=== PATIENT | male | born 1955 | race Caucasian/White ===

== ENCOUNTER 2019-12-17 06:12 | Outpatient (REF) | payer BC, SELFPAY ==
[2019-12-18 12:11] LABS: Free Prostate Spec Ag 1.5 ng/mL; Percent Free Prostate Spec Ag 20 % (calc) (>25); Prostate Specific Ag Total 7.6 ng/mL (< OR = 4.0)
== END 2019-12-17 06:13 | disposition home or self-care (01) ==
LOC: HO.LAB 06:12
PROVIDERS: PCP Nurse Practitioner Family; Visit Provider Urology
DX: R97.20 Elevated prostate specific antigen [PSA] (principal)
CPT/HCPCS: 84153

== ENCOUNTER → 2019-12-24 14:00 | Outpatient (BNVA) | payer BC, SELFPAY | PROVIDERS: PCP Nurse Practitioner Family; Visit Provider Urology | DX: R97.20 Elevated prostate specific antigen [PSA] (principal); N40.1 Benign prostatic hyperplasia with lower urinary tract symptoms; R35.1 Nocturia; R31.29 Other microscopic hematuria | CPT/HCPCS: 51798; 81002 ==

== ENCOUNTER 2019-12-25 | Outpatient (REF) | payer BC, SELFPAY ==
[2020-01-02 14:10] LABS: Urine Cytology See Pathology rpt
== END 2019-12-25 00:10 ==
LOC: HO.LNP
PROVIDERS: Visit Provider Urology
DX: R31.29 Other microscopic hematuria (principal)
CPT/HCPCS: 88112

== ENCOUNTER 2020-01-26 13:42 | Outpatient (REF) | payer BC, SELFPAY ==
--- NOTE | 2020-01-26 14:19 | US_ITS ---
EXAMINATION: US RETROPERITONEAL LIMITED (RENAL ONLY) CLINICAL INFORMATION: Calculus of kidney. COMPARISON: None TECHNIQUE: Real-time imaging of the kidneys. FINDINGS: RIGHT KIDNEY: 9.7 x 4.6 x 4.5 cm (SAG x AP x TRV). The kidney is normal in size, contour, and echogenicity. Renal cortical thickness is normal. No calculi or focal parenchymal lesions. No hydronephrosis. LEFT KIDNEY: 10.3 x 5.7 x 4.9 cm (SAG x AP x TRV). The kidney is normal in size, contour, and echogenicity. Renal cortical thickness is normal. No calculi or focal parenchymal lesions. No hydronephrosis. US/US renal BI IMPRESSION: Unremarkable renal ultrasound.
== END 2020-01-26 13:43 | disposition home or self-care (01) ==
LOC: HO.HMGCX 13:42
PROVIDERS: PCP Nurse Practitioner Family; Visit Provider Urology
DX: N20.0 Calculus of kidney (principal); R31.29 Other microscopic hematuria
CPT/HCPCS: 76775

== ENCOUNTER → 2020-01-28 14:38 | Outpatient (BNVA) | payer BC, SELFPAY | PROVIDERS: PCP Nurse Practitioner Family; Visit Provider Urology | DX: R35.1 Nocturia (principal); R31.29 Other microscopic hematuria | CPT/HCPCS: 52000; 81002 ==

== ENCOUNTER 2020-02-11 13:59 | Outpatient (REF) | payer BC, SELFPAY | END 2020-02-11 14:00 | disposition home or self-care (01) | LOC: HO.HMGCLDS 13:59 | PROVIDERS: PCP Nurse Practitioner Family; Visit Provider Internal Medicine | DX: Z20.828 Contact with and (suspected) exposure to other viral communicable diseases (principal) | CPT/HCPCS: C9803; U0003 ==

== ENCOUNTER 2020-03-14 06:00 | Day surgery (SDC) | payer BC, SELFPAY ==
[2020-03-08 10:13] VITALS: BMI 28.1
--- NOTE | 2020-03-11 12:08 | HO.ANESPROP2 ---
Documented by User: Alisia Menon 03/11/20 12:09 HPI - Anesthesia Eval Consult details Narrative: 64yo M for Laser Ablation Prostate [facility] Past Medical History Medical History Elevated cholesterol Elevated PSA [place] disease Hemorrhoids, thrombosed HTN (hypertension) Hypothyroid Family History Family History Father Colon cancer Mother COPD (chronic obstructive pulmonary disease) Brother No problems noted. Maternal Grandfather No problems noted. Maternal Grandmother No problems noted. Maternal Aunt No problems noted. Maternal Uncle No problems noted. Paternal Aunt No problems noted. Paternal Grandfather No problems noted. Paternal Grandmother No problems noted. Paternal Uncle No problems noted. Surgical History Surgical History History of colonoscopy History of melanoma History of tonsillectomy and adenoidectomy Hx of removal of cyst Social History Social History Smoking Status: Never smoker Use of substances other than those prescribed or required for medical reasons: No Advance Directives: No Advance Directives Information Provided: Yes Meds Allergies Allergy/AdvReac Type Severity Reaction Status Date / Time lorazepam [LORAZEPAM] Allergy Mild TURNS PINK Verified 03/14/20 06:06 Exam Exam Date and Time: March 11, 2020 1208 Height,Weight and Vital Signs: Height 5 ft 7 in Weight 81.647 kg Pertinent Lab Results Pertinent Lab Results: Laboratory Tests 04/16/18 11/06/19 06:40 06:07 WBC 4.7 L Hgb 15.2 Hct 46.2 Plt Count 230 Sodium 141 Potassium 4.1 Chloride 108 BUN 17 H Creatinine 1.32 Assessment and Plan Assessment Anesthesia Assessment: Chart Reviewed Documented by User: Magdalena Aranda 03/14/20 07:19 [facility] Past Medical History Medical History Elevated cholesterol Elevated PSA [place] disease Hemorrhoids, thrombosed HTN (hypertension) Hypothyroid Family History Family History Father Colon cancer Mother COPD (chronic obstructive pulmonary disease) Brother No problems noted. Maternal Grandfather No problems noted. Maternal Grandmother No problems noted. Maternal Aunt No problems noted. Maternal Uncle No problems noted. Paternal Aunt No problems noted. Paternal Grandfather No problems noted. Paternal Grandmother No problems noted. Paternal Uncle No problems noted. Surgical History Surgical History History of colonoscopy History of melanoma History of tonsillectomy and adenoidectomy Hx of removal of cyst Social History Social History Smoking Status: Never smoker Use of substances other than those prescribed or required for medical reasons: No Advance Directives: No Advance Directives Information Provided: Yes Meds Allergies Allergy/AdvReac Type Severity Reaction Status Date / Time lorazepam [LORAZEPAM] Allergy Mild TURNS PINK Verified 03/14/20 06:06 Exam Airway Mallampati Class: II TM Dist: >3cm Neck ROM: Full Assessment and Plan Assessment Anesthesia Assessment: Anesthesia Plan Discussed and Chart Reviewed Final Anesthetic Review NPO: Yes ASA Class: II Final Preanesthetic Review: No Changes in Pt Med Stat, Meds/Allgs Chart Reviewed, Consent Obtained/Reviewed and Anes Risks/Benef Reviewed Patient Risk: Low Procedure Risk: Low Assessment/Block/Sedation in SS: Assess/Block/Sedation-SS Anesthetic Plan Anesthetic Plan: GA Disposition: Standard PACU
[2020-03-14] VITALS (7 sets, daily range): BP systolic 129–155; BP diastolic 61–80; PULSE 50–66; RESP 16; TEMP 35.9–36.4; O2SAT 88–98; BMI 28.1
[2020-03-14] MEDS: levoFLOXacin 500 MG TABLET PO (06:19)
[2020-03-14] MEDS: Lactated Ringers 1,000 ML 100 ML IVCONT (06:32)
--- NOTE | 2020-03-14 07:33 | P.HPSUR_ITS ---
Pre-Procedural Eval Section B Chief Complaint: elevated prostate,benign prostate hyperplasia Details of Present Illness: BPH Relevant Family History (Specify if Yes): No Relevant Social History: None Present Medications: see Short Stay Collaborative assessment Medical History: No relevant PMH Allergies: Allergies Allergy/AdvReac Type Severity Reaction Status Date / Time lorazepam [LORAZEPAM] Allergy Mild TURNS PINK Verified 03/14/20 06:06 Review of Systems Sugical H&P ROS: Negative: Constitution, Cardiovascular, Respiratory, Neurological, Psychiatric, Hem-Onc, Allergic/Immunologic, Gastrointestinal, Genitourinary, Musculoskeletal, Integumentary, Endocrine and Eyes/Ears/Nose/Th roat Exam Surgical H&P Exam: Normal: HEENT, Normal: Heart, Normal: Lungs, Normal: Extremities, Normal: Abdomen, Normal: Skin and Normal: Neurological Plan Diagnosis/Plan: Unchanged I have reviewed the history and physical and performed a pertinent physical examination on my patient. No changes have occurred unless specified. Laser enucleation of prostate
--- NOTE | 2020-03-14 08:59 | PM.OP ---
Brief Operative Note Date of Service: 03/14/20 Pre-op diagnosis: BPH Post-op diagnosis: same Procedure: Laser Enculeation of the Prostate Surgeon: Keven Bowen MD Anesthesia: GLMA Estimated blood loss (mL): 0 Pathology: other (prostate) Condition: stable Disposition: same day
--- NOTE | 2020-03-14 09:01 | W.PM.OPN ---
Operative Note Operative Note Date of Service: 03/14/20 Narrative: PreOperative Diagnosis: BPH Post Operative Diagnosis: BPH Procedure: Laser enucleation of prostate Surgeon: Dr Keven Bowen Anesthesia: General Indications for procedure: Weakness of stream. 64-year-old male. On finasteride. Progressive symptoms. Is aware of risks and benefits. Procedure: After informed consent was verified the patient was brought to the operating room and placed in a supine position. anesthesia was administered per protocol. Patient was prepped and draped in a sterile fashion. This was after he was put in simple lithotomy position. Antibiotics have been administered. A 22 Indonesian cystoscope was inserted. No abnormality noted in the anterior posterior urethra. Both ureteric orifices normal position. Trilobar hypertrophy with large median lobe noted. The laser cystoscope was then placed. Using a GreenLight laser fiber the median lobe was enucleated and ablated. Grooves had been made at the 5 and 7 o'clock position. They had been taken from the bladder neck down to the veru. The patient's left lateral lobe was then enucleated and ablated after making a groove at the 2 o'clock position. A similar procedure was repeated on the right-hand side after making a groove at the 11 o'clock position. The intervening 12:00 o'clock tissue was then also ablated. Total of 200,000 kilojoules of energy was used. Lasing time 28 minutes At the completion of the procedure a [address] catheter with 30 cc balloon was placed and then placed on gentle traction. A belladonna and opiate suppository was used for postprocedure pain management. He tolerated procedure well was extubated in operating room transferred in a stable condition to recovery area. Pathology: prostate Drains: 22 Fr Catheter
[2020-03-14] MEDS: oxyCODONE HCl Immed Release 5 MG TABLET PO (09:21)
[2020-03-14] MEDS: Acetaminophen 325 MG TABLET 650 MG PO (09:21)
== END 2020-03-14 10:16 ==
LOC: HO.SSS 06:01
PROVIDERS: PCP Nurse Practitioner Family; Visit Provider Urology
PROC: 0V507ZZ Destruction of Prostate, Via Natural or Artificial Opening (ICD-10-PCS; CPT 52649; principal; 2020-03-14 07:30)
DX: N40.1 Benign prostatic hyperplasia with lower urinary tract symptoms (principal); R39.12 Poor urinary stream; R97.20 Elevated prostate specific antigen [PSA]; I10 Essential (primary) hypertension; E80.4 Gilbert syndrome; Z79.899 Other long term (current) drug therapy; Z85.820 Personal history of malignant melanoma of skin
CPT/HCPCS: 52649; 88305; J2405; J3010

== ENCOUNTER → 2020-03-17 08:50 | Outpatient (BNVA) | payer BC, SELFPAY | PROVIDERS: PCP Nurse Practitioner Family; Visit Provider Urology ==

== ENCOUNTER 2020-04-20 09:47 | Outpatient (REF) | payer BC, SELFPAY ==
[2020-04-20 12:27] LABS: Prostate Specific Antigen 3.98 ng/mL (<0.05-4.0)
== END 2020-04-20 09:48 | disposition home or self-care (01) ==
LOC: HO.WFDLDS 09:47
PROVIDERS: Visit Provider Urology
DX: Z12.5 Encounter for screening for malignant neoplasm of prostate (principal); N40.1 Benign prostatic hyperplasia with lower urinary tract symptoms; N13.8 Other obstructive and reflux uropathy
CPT/HCPCS: 36415; 84153

== ENCOUNTER → 2020-04-28 16:14 | Outpatient (BNVA) | payer BC, SELFPAY | PROVIDERS: PCP Nurse Practitioner Family; Visit Provider Urology ==

== ENCOUNTER 2020-05-11 06:01 | Outpatient (REF) | payer BC, SELFPAY ==
[2020-05-11 07:34] LABS: Alanine Aminotransferase 23 U/L (0-40); Albumin Level 4.1 g/dL (3.5-5.0); Alkaline Phosphatase 80 U/L (39-117); Anion Gap 11 (12-20); Aspartate Amino Transferase 20 U/L (5-37); Bilirubin Total 2.3 mg/dL (0.0-1.0); Blood Urea Nitrogen 17 mg/dL (9-16); Carbon Dioxide 27 mmol/L (22-29); Chloride 107 mmol/L (96-108); Cholesterol 158 mg/dL; Estimated Glomerular Filt Rate 56; Glucose Fasting 95 mg/dL (60-99); HDL Cholesterol 43 mg/dL; LDL Cholesterol Calculated 94 mg/dl; Potassium 4.2 mmol/L (3.3-5.1); Sodium 141 mmol/L (135-145); Total Protein 6.4 g/dL (6.5-8.0); Triglycerides 106 mg/dL
[2020-05-11 07:56] LABS: TSH reflex Free T4 0.93 uIU/mL (0.32-4.0)
[2020-05-11 08:16] LABS: Prostate Specific Antigen Scr 3.74 ng/mL (<0.05-4.0)
== END 2020-05-11 06:02 | disposition home or self-care (01) ==
LOC: HO.LAB 06:01
PROVIDERS: PCP Nurse Practitioner Family; Visit Provider Nurse Practitioner Family
DX: Z12.5 Encounter for screening for malignant neoplasm of prostate (principal); Z13.220 Encounter for screening for lipoid disorders; Z13.1 Encounter for screening for diabetes mellitus; R97.20 Elevated prostate specific antigen [PSA]; E03.9 Hypothyroidism, unspecified
CPT/HCPCS: 36415; 80053; 80061; 84153; 84443

== ENCOUNTER 2020-11-09 11:00 | Outpatient (REF) | payer BC, SELFPAY ==
[2020-11-09 14:45] LABS: PSA,Total (Free>4and<10) 5.39 ng/mL (0.00-4.00)
[2020-11-10 12:31] LABS: Free Prostate Spec Ag 1.4 ng/mL; Percent Free Prostate Spec Ag 30 % (calc) (>25); Prostate Specific Ag Total 4.6 ng/mL (< OR = 4.0)
== END 2020-11-09 11:01 | disposition home or self-care (01) ==
LOC: HO.HMGCLDS 11:00
PROVIDERS: PCP Nurse Practitioner Family; Visit Provider Urology
DX: R97.20 Elevated prostate specific antigen [PSA] (principal); N40.1 Benign prostatic hyperplasia with lower urinary tract symptoms; N13.8 Other obstructive and reflux uropathy; Z12.5 Encounter for screening for malignant neoplasm of prostate
CPT/HCPCS: 36415; 84153; 84154

== ENCOUNTER → 2020-11-16 12:07 | Outpatient (BNVA) | payer BC, SELFPAY | PROVIDERS: PCP Nurse Practitioner Family; Visit Provider Urology ==

== ENCOUNTER 2021-05-02 11:23 | Outpatient (REF) | payer BC, SELFPAY ==
[2021-05-02 13:56] LABS: PSA,Total (Free>4and<10) 2.76 ng/mL (0.00-4.00)
== END 2021-05-02 11:24 | disposition home or self-care (01) ==
LOC: HO.WFDLDS 11:23
PROVIDERS: Visit Provider Urology
DX: Z12.5 Encounter for screening for malignant neoplasm of prostate (principal); N13.8 Other obstructive and reflux uropathy; N40.1 Benign prostatic hyperplasia with lower urinary tract symptoms; R97.20 Elevated prostate specific antigen [PSA]
CPT/HCPCS: 36415; 84153

== ENCOUNTER 2021-05-10 09:07 | Outpatient (REF) | payer BC, SELFPAY ==
[2021-05-10 11:15] LABS: Appearance Urine CLEAR; Color Urine YELLOW; Glucose Urine UA NEG (NEG); Leukocyte Esterase Urine NEG (NEG); Nitrite Urine NEG (NEG); PH 5.5 (5.0-8.0); Specific Gravity - Urine 1.025 (1.005-1.025); Urine Blood NEG (NEG); Urine Ketones NEG (NEG); Urine Protein NEG (NEG-TRACE)
[2021-05-10 12:17] LABS: Alanine Aminotransferase 15 U/L (0-40); Alkaline Phosphatase 77 U/L (39-117); Anion Gap 12 (12-20); Aspartate Amino Transferase 13 U/L (5-37); Bilirubin Total 1.8 mg/dL (0.0-1.0); Blood Urea Nitrogen 22 mg/dL (9-16); Calcium 9.6 mg/dL (8.4-10.2); Carbon Dioxide 25 mmol/L (22-29); Chloride 107 mmol/L (96-108); Cholesterol 149 mg/dL; Estimated Glomerular Filt Rate 51; Glucose Fasting 106 mg/dL (60-99); HDL Cholesterol 41 mg/dL; LDL Cholesterol Calculated 90 mg/dl; Potassium 4.4 mmol/L (3.3-5.1); Sodium 140 mmol/L (135-145); Total Protein 6.5 g/dL (6.5-8.0); Triglycerides 91 mg/dL
[2021-05-10 12:22] LABS: TSH reflex Free T4 0.79 uIU/mL (0.32-4.0)
== END 2021-05-10 09:08 | disposition home or self-care (01) ==
LOC: HO.HMGCLDS 09:07
PROVIDERS: Visit Provider Nurse Practitioner Family
DX: I10 Essential (primary) hypertension (principal)
CPT/HCPCS: 36415; 80053; 80061; 81003; 84443

== ENCOUNTER → 2021-05-18 09:10 | Outpatient (BNVA) | payer BC, SELFPAY | PROVIDERS: PCP Nurse Practitioner Family; Visit Provider Urology | DX: N40.1 Benign prostatic hyperplasia with lower urinary tract symptoms (principal); R97.20 Elevated prostate specific antigen [PSA]; N52.9 Male erectile dysfunction, unspecified ==

== ENCOUNTER 2021-11-14 06:06 | Outpatient (REF) | payer BC, SELFPAY ==
[2021-11-14 08:17] LABS: Prostate Specific Antigen 1.87 ng/mL (<0.05-4.0)
== END 2021-11-14 06:07 | disposition home or self-care (01) ==
LOC: HO.LAB 06:06
PROVIDERS: PCP Nurse Practitioner Family; Visit Provider Urology
DX: Z12.5 Encounter for screening for malignant neoplasm of prostate (principal); R97.20 Elevated prostate specific antigen [PSA]
CPT/HCPCS: 36415; 84153

== ENCOUNTER → 2021-11-21 11:16 | Outpatient (BNVA) | payer BC, SELFPAY | PROVIDERS: PCP Nurse Practitioner Family; Visit Provider Urology | DX: N52.9 Male erectile dysfunction, unspecified (principal); R97.20 Elevated prostate specific antigen [PSA]; N40.1 Benign prostatic hyperplasia with lower urinary tract symptoms; R35.1 Nocturia | CPT/HCPCS: 51798 ==

== ENCOUNTER 2022-02-08 06:10 | Outpatient (REF) | payer BC, SELFPAY ==
[2022-02-08 06:31] LABS: MANUAL DIFF FLAG NO
[2022-02-08 07:03] LABS: Basophils Absolute Auto 0.1 X10*3/uL (0.0-0.2); Eosinophils Absolute Auto 0.4 X10*3/uL (0.0-0.4); Eosinophils Percent Auto 8.6 % (0-4); Hematocrit 46.8 % (42.0-52.0); Hemoglobin 15.9 g/dl (14.0-18.0); Imm Gran Abs Auto 0.01 X10*3/uL (0.00-0.03); Imm Gran Pct Auto 0.2 % (0.0-0.4); Lymphocytes Absolute Auto 1.9 X10*3/uL (1.2-4.9); Lymphocytes Percent Auto 47.7 % (20-40); Mean Corpuscular Hemoglobin 29.6 pg (27.0-33.0); Mean Corpuscular Volume 87.2 fL (80.0-98.0); Mean Platelet Volume 8.9 fL (9.4-12.4); Monocytes Absolute Auto 0.4 X10*3/uL (0.1-1.2); Monocytes Percent Auto 10.3 % (2-11); Neutrophils Absolute Auto 1.3 x10*3/uL (2.0-8.3); Neutrophils Percent Auto 31.2 % (45-73); Platelet Count 227 X10*3/uL (160-400); Red Blood Count 5.37 X10*6/uL (4.60-5.80); Red Cell Distribution Width 12.5 % (11.0-16.0); White Blood Count 4.1 X10*3/uL (4.8-10.8)
[2022-02-08 07:46] LABS: Appearance Urine Clear; Color Urine Yellow; Glucose Urine UA Negative (Negative); Leukocyte Esterase Urine Negative (Negative); Nitrite Urine Negative (Negative); PH 5.5 (5.0-9.0); Urine Blood Negative (Negative); Urine Ketones Negative (Negative); Urine Protein Negative (Neg-Trace)
[2022-02-08 07:49] LABS: Alanine Aminotransferase 17 U/L (0-40); Alkaline Phosphatase 87 U/L (39-117); Anion Gap 11 (12-20); Aspartate Amino Transferase 14 U/L (5-37); Bilirubin Total 2.2 mg/dL (0.0-1.0); Blood Urea Nitrogen 19 mg/dL (9-16); Calcium 9.3 mg/dL (8.4-10.2); Carbon Dioxide 26 mmol/L (22-29); Chloride 108 mmol/L (96-108); Cholesterol 138 mg/dL; Estimated Glomerular Filt Rate 54; Glucose Fasting 100 mg/dL (60-99); HDL Cholesterol 37 mg/dL; LDL Cholesterol Calculated 86 mg/dl; Potassium 4.6 mmol/L (3.3-5.1); Sodium 140 mmol/L (135-145); Total Protein 6.3 g/dL (6.5-8.0); Triglycerides 79 mg/dL
[2022-02-08 08:12] LABS: TSH reflex Free T4 0.35 uIU/mL (0.32-4.0)
== END 2022-02-08 06:11 | disposition home or self-care (01) ==
LOC: HO.LAB 06:10
PROVIDERS: Urology; PCP Nurse Practitioner Family; Visit Provider Nurse Practitioner Family
DX: I10 Essential (primary) hypertension (principal); N40.1 Benign prostatic hyperplasia with lower urinary tract symptoms; D72.819 Decreased white blood cell count, unspecified
CPT/HCPCS: 36415; 80053; 80061; 81003; 84443; 85025

== ENCOUNTER 2022-03-12 07:48 | Outpatient (REF) | payer BC, SELFPAY ==
[2022-03-12 11:05] LABS: MANUAL DIFF FLAG NO
[2022-03-12 11:11] LABS: Basophils Absolute Auto 0.1 X10*3/uL (0.0-0.2); Basophils Percent Auto 1.8 % (0-2); Eosinophils Absolute Auto 0.4 X10*3/uL (0.0-0.4); Eosinophils Percent Auto 9.4 % (0-4); Hematocrit 49.4 % (42.0-52.0); Hemoglobin 16.6 g/dl (14.0-18.0); Imm Gran Abs Auto 0.02 X10*3/uL (0.00-0.03); Imm Gran Pct Auto 0.5 % (0.0-0.4); Lymphocytes Absolute Auto 2.2 X10*3/uL (1.2-4.9); Lymphocytes Percent Auto 49.1 % (20-40); Mean Corpuscular HGB Conc 33.6 g/dl (31.0-36.0); Mean Corpuscular Volume 89.2 fL (80.0-98.0); Mean Platelet Volume 9.5 fL (9.4-12.4); Monocytes Absolute Auto 0.4 X10*3/uL (0.1-1.2); Monocytes Percent Auto 9.8 % (2-11); Neutrophils Absolute Auto 1.3 x10*3/uL (2.0-8.3); Neutrophils Percent Auto 29.4 % (45-73); Platelet Count 254 X10*3/uL (160-400); Red Blood Count 5.54 X10*6/uL (4.60-5.80); Red Cell Distribution Width 12.6 % (11.0-16.0); White Blood Count 4.4 X10*3/uL (4.8-10.8)
[2022-03-12 11:23] LABS: INTERNATIONAL NORM RATIO 1.1 (0.9-1.1); Prothrombin Time 13.2 SEC (10.0-13.1)
[2022-03-12 11:26] LABS: Alanine Aminotransferase 16 U/L (0-40); Albumin Level 4.1 g/dL (3.5-5.0); Alkaline Phosphatase 93 U/L (39-117); Anion Gap 8 (12-20); Aspartate Amino Transferase 16 U/L (5-37); Bilirubin Total 1.9 mg/dL (0.0-1.0); Blood Urea Nitrogen 18 mg/dL (9-16); Calcium 9.3 mg/dL (8.4-10.2); Carbon Dioxide 29 mmol/L (22-29); Chloride 106 mmol/L (96-108); Estimated Glomerular Filt Rate 50; Glucose Random 97 mg/dL (60-115); Partial Thromboplastin Time 33.3 SEC (26.0-36.4); Sodium 139 mmol/L (135-145); Total Protein 6.5 g/dL (6.5-8.0)
== END 2022-03-12 07:49 | disposition home or self-care (01) ==
LOC: HO.HMGCLDS 07:48
PROVIDERS: PCP Nurse Practitioner Family; Visit Provider Nurse Practitioner Family
DX: Z01.818 Encounter for other preprocedural examination (principal)
CPT/HCPCS: 36415; 80053; 85025; 85610; 85730

== ENCOUNTER 2022-03-28 06:02 | Outpatient (REF) | payer BC, SELFPAY ==
[2022-03-28 06:13] LABS: MANUAL DIFF FLAG NO
[2022-03-28 07:27] LABS: Basophils Absolute Auto 0.1 X10*3/uL (0.0-0.2); Basophils Percent Auto 0.9 % (0-2); Eosinophils Absolute Auto 0.4 X10*3/uL (0.0-0.4); Eosinophils Percent Auto 6.4 % (0-4); Hematocrit 49.5 % (42.0-52.0); Hemoglobin 16.6 g/dl (14.0-18.0); Imm Gran Abs Auto 0.09 X10*3/uL (0.00-0.03); Imm Gran Pct Auto 1.3 % (0.0-0.4); Lymphocytes Absolute Auto 2.9 X10*3/uL (1.2-4.9); Lymphocytes Percent Auto 41.9 % (20-40); Mean Corpuscular HGB Conc 33.5 g/dl (31.0-36.0); Mean Corpuscular Hemoglobin 29.6 pg (27.0-33.0); Mean Corpuscular Volume 88.4 fL (80.0-98.0); Mean Platelet Volume 9.2 fL (9.4-12.4); Monocytes Absolute Auto 0.7 X10*3/uL (0.1-1.2); Monocytes Percent Auto 9.7 % (2-11); Neutrophils Absolute Auto 2.8 x10*3/uL (2.0-8.3); Neutrophils Percent Auto 39.8 % (45-73); Platelet Count 272 X10*3/uL (160-400); Red Cell Distribution Width 12.9 % (11.0-16.0); White Blood Count 6.9 X10*3/uL (4.8-10.8)
[2022-03-28 07:52] LABS: Alanine Aminotransferase 13 U/L (0-40); Albumin Level 3.8 g/dL (3.5-5.0); Alkaline Phosphatase 82 U/L (39-117); Anion Gap 16 (12-20); Aspartate Amino Transferase 11 U/L (5-37); Bilirubin Total 1.6 mg/dL (0.0-1.0); Blood Urea Nitrogen 25 mg/dL (9-16); Calcium 9.1 mg/dL (8.4-10.2); Carbon Dioxide 22 mmol/L (22-29); Chloride 106 mmol/L (96-108); Estimated Glomerular Filt Rate 43; Glucose Random 95 mg/dL (60-115); Potassium 4.3 mmol/L (3.3-5.1); Sodium 140 mmol/L (135-145); Total Protein 6.2 g/dL (6.5-8.0)
[2022-03-28 08:12] LABS: PSA,Total (Free>4and<10) 2.04 ng/mL (0.00-4.00)
== END 2022-03-28 06:03 | disposition home or self-care (01) ==
LOC: HO.LAB 06:02
PROVIDERS: Urology; PCP Nurse Practitioner Family; Visit Provider Nurse Practitioner Family
DX: N40.1 Benign prostatic hyperplasia with lower urinary tract symptoms (principal); R79.89 Other specified abnormal findings of blood chemistry; Z12.5 Encounter for screening for malignant neoplasm of prostate
CPT/HCPCS: 36415; 80053; 84153; 85025

== ENCOUNTER 2022-06-21 08:15 | Outpatient (REF) | payer MEDICARE, SELFPAY ==
[2022-06-21 11:24] LABS: MANUAL DIFF FLAG NO
[2022-06-21 11:45] LABS: Basophils Absolute Auto 0.1 X10*3/uL (0.0-0.2); Basophils Percent Auto 1.9 % (0-2); Eosinophils Absolute Auto 0.2 X10*3/uL (0.0-0.4); Eosinophils Percent Auto 4.5 % (0-4); Hematocrit 50.7 % (42.0-52.0); Hemoglobin 16.5 g/dl (14.0-18.0); Imm Gran Abs Auto 0.02 X10*3/uL (0.00-0.03); Imm Gran Pct Auto 0.4 % (0.0-0.4); Lymphocytes Absolute Auto 1.6 X10*3/uL (1.2-4.9); Lymphocytes Percent Auto 35.3 % (20-40); Mean Corpuscular HGB Conc 32.5 g/dl (31.0-36.0); Mean Corpuscular Hemoglobin 29.3 pg (27.0-33.0); Mean Corpuscular Volume 90.1 fL (80.0-98.0); Mean Platelet Volume 9.4 fL (9.4-12.4); Monocytes Absolute Auto 0.4 X10*3/uL (0.1-1.2); Monocytes Percent Auto 9.1 % (2-11); Neutrophils Absolute Auto 2.3 x10*3/uL (2.0-8.3); Neutrophils Percent Auto 48.8 % (45-73); Platelet Count 258 X10*3/uL (160-400); Red Blood Count 5.63 X10*6/uL (4.60-5.80); Red Cell Distribution Width 12.7 % (11.0-16.0); White Blood Count 4.6 X10*3/uL (4.8-10.8)
[2022-06-21 11:54] LABS: Appearance Urine Cloudy; Color Urine Yellow; Glucose Urine UA Negative (Negative); Leukocyte Esterase Urine Negative (Negative); Nitrite Urine Negative (Negative); PH 5.5 (5.0-9.0); Urine Blood Negative (Negative); Urine Ketones Negative (Negative); Urine Protein Negative (Neg-Trace)
[2022-06-21 12:37] LABS: Alanine Aminotransferase 17 U/L (0-40); Albumin Level 4.4 g/dL (3.5-5.0); Alkaline Phosphatase 94 U/L (39-117); Anion Gap 13 (12-20); Aspartate Amino Transferase 13 U/L (5-37); Bilirubin Total 2.5 mg/dL (0.0-1.0); Blood Urea Nitrogen 18 mg/dL (9-16); Calcium 9.7 mg/dL (8.4-10.2); Carbon Dioxide 26 mmol/L (22-29); Chloride 108 mmol/L (96-108); Cholesterol 173 mg/dL; Estimated Glomerular Filt Rate 51; Glucose Fasting 114 mg/dL (60-99); HDL Cholesterol 43 mg/dL; LDL Cholesterol Calculated 108 mg/dl; Potassium 4.5 mmol/L (3.3-5.1); Sodium 142 mmol/L (135-145); TSH reflex Free T4 0.65 uIU/mL (0.32-4.0); Total Protein 6.7 g/dL (6.5-8.0); Triglycerides 112 mg/dL
== END 2022-06-21 08:16 | disposition home or self-care (01) ==
LOC: HO.WFDLDS 08:15
PROVIDERS: Visit Provider Nurse Practitioner Family
DX: R10.9 Unspecified abdominal pain (principal); I10 Essential (primary) hypertension; E03.9 Hypothyroidism, unspecified
CPT/HCPCS: 36415; 80053; 80061; 81003; 84443; 85025

== ENCOUNTER 2022-06-21 15:09 | Outpatient (REF) | payer MEDICARE, SELFPAY ==
--- NOTE | ~2022-06-21 | US_ITS ---
EXAMINATION: US RETROPERITONEAL COMPLETE (RENAL) CLINICAL INFORMATION: Right flank pain. COMPARISON: Renal ultrasound from 01/26/2020 TECHNIQUE: Real-time imaging of the kidneys and bladder. The medical office technologist reports that the examination was extremely limited by body habitus. FINDINGS: It is difficult to obtain accurate size measurements of kidneys. RIGHT KIDNEY: The right kidney measures approximately 9.2 x 4.9 x 4.6 cm cm (SAG x AP x TRV). The kidney is normal in size, contour, and echogenicity. Renal cortical thickness is normal. No calculi or focal parenchymal lesions. No hydronephrosis. LEFT KIDNEY: The left kidney measures approximately 9.2 x 5.3 x 4.4 cm (SAG x AP x TRV). The kidney is normal in size, contour, and echogenicity. Renal cortical thickness is normal. No calculi or focal parenchymal lesions. No hydronephrosis. BLADDER: Urinary bladder is distended to an estimated volume of 167 mL and bladder is empty after voiding. No evidence of bladder wall thickening, stones or mass. Both ureteral jets are visualized. OTHER: No pelvic free fluid. Prostate gland measures approximately 4.2 cm transverse and 3.3 cm AP. US/US retroperitoneal comp IMPRESSION: * The ultrasound evaluation the kidneys is limited by body habitus. * The kidneys are grossly normal. No evidence of renal stone or hydronephrosis. * Urinary bladder is normal.
== END 2022-06-21 15:10 | disposition home or self-care (01) ==
LOC: HO.US 15:09
PROVIDERS: PCP Nurse Practitioner Family; Visit Provider Nurse Practitioner Family
DX: R10.9 Unspecified abdominal pain (principal)
CPT/HCPCS: 76770

== ENCOUNTER 2022-10-08 08:44 | Outpatient (AMB) | payer MEDICARE, SELFPAY ==
[2022-10-08 09:06] VITALS: BP 142/90; PULSE 73; O2SAT 98; BMI 27.9
--- NOTE | 2022-10-08 09:06 | MHC.PC.OV ---
Vital Signs 10/08/22 09:06 Height 5 ft 7 in Weight 178 lb BMI 27.9 BP 142/90 H Blood Pressure Location Rt brachial Position Sitting Pulse 73 Pulse Source Pulse Oximeter Pulse Oximetry (%) 98 Oxygen Delivery Method Room Air Intake Visit Reasons: Annual PE Allergies lorazepam [LORAZEPAM] Allergy (Mild, Verified 10/08/22 09:11) TURNS PINK Medication List - Last Reconciled 10/08/22 by TAMIA Martínez atorvastatin 10 mg PO QPM cholecalciferol (vitamin D3) (Vitamin D3) 50 mcg PO DAILY finasteride 5 mg PO DAILY 90 days levothyroxine 100 mcg PO QAM losartan 25 mg PO DAILY 30 days metoprolol succinate ER 25 mg PO DAILY Saccharomyces boulardii (Daily Probiotic (S. boulardii)) 250 mg PO DAILY Tobacco use date assessed: 10/08/22 Fall risk assessment: No Falls in past year Last assessed Fall Risk: 10/08/22 Dental Screening Dental Screen Date: 10/08/22 Did you have a dental visit in the last 12 months?: Yes Did you have a dental problem in the last 6 months where you did not have access to dental care?: No Was dental information given to patient?: Patient has dentist HPI Annual PE HPI Details Pt is here for a PE. Will order labs. Colon screen is up to date. PSA is up to date, pt sees urology. HTN: BP at home in the 130s/80s. Denies chest pain, shortness of breath, headache, dizziness, and blurred vision. EKG in office today showed LBBB. Pt reports having this for over 20 years. He has seen cardiology in the past and has undergone testing. Will order echo and refer to cardiology. FORMERLY [facility], [facility] Medical History (Updated 10/08/22 @ 10:11 by TAMIA Martínez) COVID-19 Elevated cholesterol Elevated PSA [place] disease Hemorrhoids, thrombosed HTN (hypertension) Hypothyroid Other specified cataract (~03/20/22) Prostate enlargement (~03/14/19) Surgical History History of colonoscopy History of melanoma History of tonsillectomy and adenoidectomy Hx of removal of cyst Family History Father Colon cancer Mother COPD (chronic obstructive pulmonary disease) Brother No problems noted. Maternal Grandfather No problems noted. Maternal Grandmother No problems noted. Maternal Aunt No problems noted. Maternal Uncle No problems noted. Paternal Aunt No problems noted. Paternal Grandfather No problems noted. Paternal Grandmother No problems noted. Paternal Uncle No problems noted. Social History Household Members: Spouse Housing: Condominium Patient Tobacco Use Status: Never used Tobacco e-Cigarette/Vaping Use: Never Used Second Hand Smoke Exposure: No service: No Current occupational status: employed Current occupation: atty Current occupational exposures/hazards: No Cognitive needs: No Hearing needs: No Vision needs: Yes Questionnaire Thrive Questionnaire Date Thrive assessed: 03/12/22 TINA-7 AMB Questionnaire TINA-7 Date TINA - 7 assessed: 03/12/22 Source: Developed by Drs. Wong Suárez, Ashley Lake, Robert Plascencia and colleagues, with an educational linda from [employer]. Review of Systems Const Denies chills and Denies fever(s) Eyes Denies blurry vision ENT Denies vertigo, Denies dizziness and Denies sore throat Card Denies chest pain at rest, Denies chest pain with activity, Denies diaphoresis, Denies dyspnea and Denies dyspnea on exertion Resp Denies cough, Denies dyspnea, Denies dyspnea on exertion and Denies wheezing GI Denies abdominal pain, Denies melena, Denies hematochezia, Denies constipation, Denies diarrhea and Denies loose stools Denies hematuria Musc Denies numbness and Denies tingling Skin/Breast Denies lesions Neuro Denies vertigo, Denies dizziness, Denies numbness and Denies tingling Psych Denies anxiety, Denies depression, Denies homicidal ideation, Denies suicidal ideation and Denies other (substance abuse) Aller/Immun Denies wheezing Physical exam (Primary Care) Vital Signs: Last Vital Signs Pulse 73 10/08/22 09:06 BP 142/90 H 10/08/22 09:06 Pulse Ox 98 10/08/22 09:06 Oxygen Delivery Method Room Air 10/08/22 09:06 BMI result Body Mass Index 27.9 Tobacco/Smoking Status: Tobacco use Status Tobacco use date assessed 10/08/22 10/08/22 09:14 Patient Tobacco Use Status Never used Tobacco 10/08/22 09:14 e-Cigarette/Vaping Use Never Used 10/08/22 09:14 Thrive Assessment: Date of Thrive Assessment Date Thrive assessed 03/12/22 10/08/22 09:14 Const General: cooperative Nutritional Appearance: well nourished Orientation/consciousness: patient oriented x3 HENMT Head: Yes normal to inspection, Yes normocephalic and Yes atraumatic Ears: TM's normal bilaterally Eyes General: appearance normal, both eyes and all related structures Alignment and Position: alignment normal and position normal Neck Neck: Yes normal visual inspection and Yes no lymphadenopathy Thyroid: Thyroid normal Resp Effort & Inspection: normal respiratory effort Auscultation: clear to auscultation bilaterally Cardio Rate: regular rate Rhythm: regular rhythm Heart sounds: S1 normal heart sound present, S2 normal heart sound present and no murmurs GI Palpation (GI): Soft to palpation and nontender Auscultation: normal bowel sounds Male General Exam: Yes normal external exam Penis: normal penis Scrotum: scrotum normal, testes descended bilaterally and no inguinal hernias Testes: no testicular mass Skin Rashes: no rashes Neuro General: patient oriented x3, moves all extremities, no focal motor deficits and deep tendon reflexes 2+ bilaterally Romberg Test: Negative Extrem Right lower extremity: no edema Left lower extremity: no edema Psych Appearance: grossly normal Mental Status: mental status grossly normal Speech and movement: Normal speech and movement present Affect: normal affect Attitude: cooperative Thought process: Normal thought process present Thought content: Normal thought content present Insight: Good insight present (Psych) Judgement: Good judgement present (Psych) Assessment and Plan Assessment & Plan (1) Physical exam: Code(s): Z00.00 - Encounter for general adult medical examination without abnormal findings Plan: Labs ordered (2) Vitamin D deficiency: Code(s): E55.9 - Vitamin D deficiency, unspecified Plan: Labs ordered (3) LBBB (left bundle branch block): Code(s): I44.7 - Left bundle-branch block, unspecified (4) HTN (hypertension): Code(s): I10 - Essential (primary) hypertension Plan The patient agreed to the use of a certified medical dosimetrist for this encounter. Scribed for JOSEPH Madison by Margarita Garcia certified medical dosimetrist, on 10/08/2022 at 09:35 EST. Orders: Orders Comprehensive [place]. Panel Fast Today Z00.00 - Encounter for general adult medical examination without abnormal findings Lipid Panel Today Z00.00 - Encounter for general adult medical examination without abnormal findings TSH reflex Free T4 Today Z00.00 - Encounter for general adult medical examination without abnormal findings Complete Blood Count Auto Diff Today Z00.00 - Encounter for general adult medical examination without abnormal findings UA CC w/rflx Micro + Cult Today Z00.00 - Encounter for general adult medical examination without abnormal findings Vitamin D 25-OH Total Today E55.9 - Vitamin D deficiency, unspecified CA echo transthoracic complete Today I44.7 - Left bundle-branch block, unspecified AMB EKG-In Office Today Z00.00 - Encounter for general adult medical examination without abnormal findings Referrals Cardiology Referral I44.7 - Left bundle-branch block, unspecified Coding Level of Care Code Est Pt Prev Care >65y(33934) Diagnoses Physical exam Z00.00 Vitamin D deficiency E55.9 LBBB (left bundle branch block) I44.7 HTN (hypertension) I10
== END 2022-10-08 10:52 | disposition home or self-care (01) ==
PROVIDERS: Visit Provider Nurse Practitioner Family
DX: Z00.00 Encounter for general adult medical examination without abnormal findings (principal); E55.9 Vitamin D deficiency, unspecified; I44.7 Left bundle-branch block, unspecified; I10 Essential (primary) hypertension
CPT/HCPCS: 99397

== ENCOUNTER 2022-10-31 06:02 | Outpatient (REF) | payer MEDICARE, SELFPAY ==
[2022-10-31 06:21] LABS: MANUAL DIFF FLAG NO
[2022-10-31 07:30] LABS: Basophils Absolute Auto 0.1 X10*3/uL (0.0-0.2); Basophils Percent Auto 1.3 % (0-2); Eosinophils Absolute Auto 0.3 X10*3/uL (0.0-0.4); Eosinophils Percent Auto 6.6 % (0-4); Hematocrit 47.7 % (42.0-52.0); Hemoglobin 15.9 g/dl (14.0-18.0); Imm Gran Abs Auto 0.02 X10*3/uL (0.00-0.03); Imm Gran Pct Auto 0.4 % (0.0-0.4); Lymphocytes Absolute Auto 2.2 X10*3/uL (1.2-4.9); Lymphocytes Percent Auto 49.1 % (20-40); Mean Corpuscular HGB Conc 33.3 g/dl (31.0-36.0); Mean Corpuscular Hemoglobin 29.9 pg (27.0-33.0); Mean Corpuscular Volume 89.8 fL (80.0-98.0); Mean Platelet Volume 9.7 fL (9.4-12.4); Monocytes Absolute Auto 0.4 X10*3/uL (0.1-1.2); Monocytes Percent Auto 9.3 % (2-11); Neutrophils Absolute Auto 1.5 x10*3/uL (2.0-8.3); Neutrophils Percent Auto 33.3 % (45-73); Platelet Count 236 X10*3/uL (160-400); Red Blood Count 5.31 X10*6/uL (4.60-5.80); White Blood Count 4.5 X10*3/uL (4.8-10.8)
[2022-10-31 07:58] LABS: Anion Gap 13 (12-20); Blood Urea Nitrogen 20 mg/dL (9-16); Calcium 9.3 mg/dL (8.4-10.2); Carbon Dioxide 21 mmol/L (22-29); Chloride 111 mmol/L (96-108); Estimated Glomerular Filt Rate 52; Potassium 3.9 mmol/L (3.3-5.1); Sodium 141 mmol/L (135-145)
[2022-10-31 07:58] LABS: Total Protein Urine Random 11 mg/dL (<12)
[2022-10-31 08:00] LABS: Alanine Aminotransferase 13 U/L (0-40); Alkaline Phosphatase 77 U/L (39-117); Anion Gap 12 (12-20); Aspartate Amino Transferase 12 U/L (5-37); Bilirubin Total 1.6 mg/dL (0.0-1.0); Blood Urea Nitrogen 20 mg/dL (9-16); Calcium 9.5 mg/dL (8.4-10.2); Carbon Dioxide 21 mmol/L (22-29); Chloride 112 mmol/L (96-108); Cholesterol 163 mg/dL (<200); Estimated Glomerular Filt Rate 51; Glucose Fasting 99 mg/dL (60-99); HDL Cholesterol 43 mg/dL (>40); LDL Cholesterol Calculated 103 mg/dL (<100); Potassium 3.9 mmol/L (3.3-5.1); Sodium 141 mmol/L (135-145); Total Protein 6.6 g/dL (6.5-8.0); Triglycerides 86 mg/dL (<150)
[2022-10-31 08:12] LABS: Prostate Specific Antigen 2.27 ng/mL (<0.05-4.0)
[2022-10-31 08:19] LABS: TSH reflex Free T4 1.01 uIU/mL (0.32-4.0); Vitamin D 25-OH Total 32.3 ng/mL (>30); Vitamin D 25-OH Total 34.8 ng/mL (>30)
[2022-10-31 08:43] LABS: Appearance Urine Clear; Color Urine Yellow; Glucose Urine UA Negative (Negative); Leukocyte Esterase Urine Negative (Negative); Nitrite Urine Negative (Negative); PH 5.5 (5.0-9.0); Urine Blood Negative (Negative); Urine Ketones Negative (Negative); Urine Protein Negative (Neg-Trace)
[2022-11-02 15:54] LABS: PTHI 98 pg/mL (16-77)
== END 2022-10-31 06:03 | disposition home or self-care (01) ==
LOC: HO.LAB 06:02
PROVIDERS: Internal Medicine Nephrology; Absent Provider Urology; PCP Nurse Practitioner Family; Visit Provider Nurse Practitioner Family
DX: Z00.00 Encounter for general adult medical examination without abnormal findings (principal); E55.9 Vitamin D deficiency, unspecified; R97.20 Elevated prostate specific antigen [PSA]; I12.9 Hypertensive chronic kidney disease with stage 1 through stage 4 chronic kidney disease, or unspecified chronic kidney disease; N18.31 Chronic kidney disease, stage 3a; E78.2 Mixed hyperlipidemia; Z12.5 Encounter for screening for malignant neoplasm of prostate
CPT/HCPCS: 36415; 80051; 80053; 80061; 81003; 82306; 82310; 82565; 83970; 84153; 84156; 84443; 84520; 85025

== ENCOUNTER → 2022-11-08 14:27 | Outpatient (REF) | payer MEDICARE, SELFPAY ==
--- NOTE | 2022-11-08 14:30 | CA_ITS ---
Transthoracic Echocardiogram Patient (Last, First, Middle): Pratik Velez E Gender: Male Date of : 1955 Age: 67 Procedure Date: 11/08/2022 Procedure Type: Transthoracic Echocardiogram Location: OP Height: 170.18 cm Weight: 81.65 kg BSA: 1.93 m2 Heart Rate: 49 bpm BP: 140 / 84 mmHg Emergency Medical Services Coordinator: SB Referring MD: Efra Malik [facility] Symptoms: I44.7 - Left bundle-branch block, unspecified Study Quality: Adequate w contrast ECG Rhythm: Bradycardia Conclusions: - The left ventricular systolic function is mildly decreased. The calculated ejection fraction is 50% by biplane method. - There is an interatrial septal aneurysm seen bowing to the right. - No obvious valvular pathology seen on this study. Findings Procedure Information Contrast agent, definity, is being given per protocol without apparent complications. Left Ventricle Normal left ventricular cavity size. The left ventricular systolic function is mildly decreased. The calculated ejection fraction is 50% by biplane method. There is paradoxical septal motion consistent with a left bundle branch block. Evidence suggests grade I (mild) diastolic dysfunction. There is mild septal asymmetric hypertrophy. Right Ventricle Normal right ventricular cavity size and systolic function. Atria Both atria are normal in size. There is an interatrial septal aneurysm seen bowing to the right. Interatrial shunt cannot be excluded. Aortic Valve The aortic valve structure and function is likely normal. There is no aortic valve stenosis. There is no aortic valve regurgitation. Mitral Valve There is no mitral valve regurgitation. There is no mitral valve stenosis. Pulmonic Valve The pulmonic valve is likely normal. Tricuspid Valve Normal tricuspid valve structure. There is no tricuspid valve regurgitation. Tricuspid regurgitation envelope is inadequate for calculation of right ventricular systolic pressure. Great Vessels The asc aorta is normal in size. Venous The inferior vena cava was not well visualized. Pericardium/Pleural There is no evidence of pericardial effusion. Prior Study Comparison No prior study available for comparison. Recommendations, Care & Conclusions No obvious valvular pathology seen on this study. Measurements 2D Linear Measurements IVSd: 1.20 0.6-0.9/0.6-1.0 cm LVIDd: 5.09 3.9-5.3/4.2-5.9 cm LVIDd Index: 2.64 2.4-3.2/2.2-3.1 cm/m2 LVIDs: 3.62 2.0-3.6 cm LVPWd: 0.95 0.7-1.1 cm LA Diam: 3.10 2.7-3.8/3.0-4.0 cm LAIDs Index: 1.61 1.5-2.3 cm/m2 LV Mass: 257.86 67-162/88-224 g LV Mass Index: 133.61 43-95/49-115 g/m2 LVOT Diam: 2.20 3.0+(-)1.3 cm 2D Systolic Function EF 4C: 49.70 >55% EF 2C: 49.50 >55% EF BiP: 50.20 >55% Mitral Valve MV Pk E: 0.47 MV PK A: 0.63 MV Decel Time: 326.00 E/A: 0.80 E'Lateral: 6.31 E'Medial: 4.24 E/E' Med: 11.10 E/E' Lat: 7.50 PHT: 95.00 MVA PHT: 2.32 Decel Amite: 1.45 Aortic Valve AoV Pk Tanmay: 0.97 AoV Pk Grad: 4.00 JASPER: 3.80 LVOT LVOT Pk Tanmay: 0.89 LVOT Mn Tanmay: 0.65 LVOT VTI: 0.21 LVOT Pk Grad: 3.00 LVOT Mn Grad: 2.00 LVOT Diam: 2.20 LVOT Area: 3.80 Diastolic Function MV Pk E: 0.47 MV Pk A: 0.63 E/A: 0.80 E'Medial: 4.24 E/E' Med: 11.10 E' Laterial: 6.31 E/E' Lat: 7.50 Right Ventricle TAPSE (mm): 21.40 TVS' Tanmay: 10.20 Great Vessels Aorta Sinus of Valsalva: 3.30 2.0-3.5 cm Ao Asc: 3.50 2.1-3.4 cm Pulmonary Veins Pulm Vein S/D 1.00 Pulmonary Valve PV Pk Tanmay: 0.97 Peak PV Grad: 4.00 Updated in Other Vendor System with Status of Final You Polk MD electronically signed on 11/08/2022 4:17:57 PM with status of Final
== END ==
LOC: HO.CARD 14:27
PROVIDERS: PCP Nurse Practitioner Family; Visit Provider Nurse Practitioner Family
DX: I44.7 Left bundle-branch block, unspecified (principal)
CPT/HCPCS: 93306; Q9957

== ENCOUNTER → 2022-11-08 14:30 | Outpatient (BNV) | payer MEDICARE, SELFPAY | PROVIDERS: PCP Nurse Practitioner Family; Visit Provider Internal Medicine | DX: I51.9 Heart disease, unspecified (principal) | CPT/HCPCS: 93306 ==

== ENCOUNTER 2022-11-21 14:29 | Outpatient (AMB) | payer MEDICARE, SELFPAY ==
--- NOTE | 2022-11-21 14:51 | MHC.OFFVIS ---
Intake Intake Visit Reasons: 1Y PSA(set) Intake Note: Patient is Present for Follow Up PSA Urology Medication: Finasteride(Patient has ran out on refills on Finasteride, but wants to discuss the medication before any refill) Antibiotic Allergies: None Blood Thinners: None Pharmacy: [facility] Allergies lorazepam [LORAZEPAM] Allergy (Mild, Verified 11/21/22 14:54) TURNS PINK Medication List - Last Reconciled 11/21/22 by Keven Boewn MD atorvastatin 10 mg PO QPM cholecalciferol (vitamin D3) (Vitamin D3) 50 mcg PO DAILY finasteride 5 mg PO DAILY 90 days levothyroxine 100 mcg PO QAM losartan 25 mg PO DAILY metoprolol succinate ER 25 mg PO DAILY Saccharomyces boulardii (Daily Probiotic (S. boulardii)) 250 mg PO DAILY HPI HPI Comments History of Present Illness Details Pratik is a pleasant male. He is seen for the following urologic conditions - lower urinary tract symptoms - elevated PSA Finasteride every other day, PSA remaining stable 2.3. Good urinary parameters Did mention developing erectile dysfunction Obtains erection however not sufficient for penetrative intercourse Has not previously tried oral medications On demand Cialis prescribed Elevated PSA/Abnormal JESUS: Current management is [facility]Light laser prostatectomy 03/17 and finasteride Laboratory investigations include 12/12 PSA 5.1 03/15 PSA 5.8, 04/15 PSA 7.9, 05/13 PSA 6.9, 07/13 PSA 8.2 35%, 11/13 9.3, 12/13 TRUS negative 65gm, 06/14 7.0, 12/14 7.0 - 04/17 3.7, 11/15 5.2 F 30%, 05/16 2.8, 11/16 1.9, 04/19 2.1, 11/17 2.3 Individualized Prostate Cancer Risk Calculator 5-10% high risk Prostate biopsy 12/13 NAD - BPH Symptoms include 05/13 , straining 06/14 , weak stream, and are stable Imaging - 12/14 renal ultrasound. NAD. Therapeutic plan 12 month follow-up PSA [facility] Medical History Other specified cataract (~03/20/22) Prostate enlargement (~03/14/19) COVID-19 Elevated cholesterol Hypothyroid Hemorrhoids, thrombosed Elevated PSA [place] disease HTN (hypertension) Surgical History Hx of removal of cyst History of tonsillectomy and adenoidectomy History of melanoma History of colonoscopy Family History Father Colon cancer Mother COPD (chronic obstructive pulmonary disease) Brother No problems noted. Maternal Grandfather No problems noted. Maternal Grandmother No problems noted. Maternal Aunt No problems noted. Maternal Uncle No problems noted. Paternal Aunt No problems noted. Paternal Grandfather No problems noted. Paternal Grandmother No problems noted. Paternal Uncle No problems noted. Social History [facility] Members: [facility] Patient Tobacco Use Status: Never used Tobacco e-Cigarette/Vaping Use: Never Used Second Hand Smoke Exposure: No service: No Current occupational status: employed Current occupation: atty Current occupational exposures/hazards: No Cognitive needs: No Hearing needs: No Vision needs: Yes Review of Systems Const Denies chills and Denies fever(s) Card Reports no additional complaints and Denies syncope Resp Denies cough GI Denies abdominal pain and Denies heartburn Reports as per HPI and Denies change in libido Neuro Denies syncope Psych Denies change in libido Endo Denies change in libido Physical Exam Const General: cooperative, healthy appearing, comfortable and no acute distress Orientation/consciousness: patient oriented x3 HEENT Face and sinus: Yes normal facial exam Mouth: moist mucous membranes Neck Neck: Yes normal visual inspection, Yes full ROM and Yes trachea midline Chest Chest palpation & inspection: normal inspection of the chest Resp Effort & Inspection: normal respiratory effort, able to speak in complete sentences and no respiratory distress GI Inspection: Yes normal to inspection Back/Spine/Pelvis Cervical Spine: normal cervical lordosis Thoracic/Lumbar Spine: thoracic and lumbar spine normal to inspection Skin General skin exam: no rashes or lesions noted Neuro General: patient oriented x3, gait normal, tone normal and moves all extremities Extrem General: Yes normal to inspection and Yes capillary refill normal Assessment & Plan Assessment & Plan (1) Erectile dysfunction: Code(s): N52.9 - Male erectile dysfunction, unspecified Qualifiers: Erectile dysfunction type: vasculogenic Vasculogenic erectile dysfunction type: due to arterial insufficiency Qualified Code(s): N52.01 - Erectile dysfunction due to arterial insufficiency (2) BPH loc w urin obs/LUTS: Code(s): N40.1 - Benign prostatic hyperplasia with lower urinary tract symptoms Plan Three month follow-up Orders: Orders Prostate Specific Antigen 10/31/22 R97.20 - Elevated prostate specific antigen [PSA] Medications: New tadalafil On demand medication take 60 minutes before intended activity 20 mg PO ONCE PRN 30 tabs 0RF sexual activity 30 days N52.9 - Male erectile dysfunction, unspecified Patient Instructions: Imaging studies, laboratory and physical exam results were discussed and reviewed in detail. No major barriers to patient understanding were identified. An opportunity to ask questions regarding the treatment plan was provided. All questions were answered. The patient expressed understanding and agreement with the above treatment plan. The patient is aware they should contact our office by phone for worsening of their current condition or the appearance of new urologic symptoms. Compliance is encouraged with any medications and followup testing that is ordered. It is a privilege to participate in the urologic care of your patient. If you have any questions or concerns regarding treatment for the above conditions, or other urologic issues, please do not hesitate to contact me. The office telephone contact is [phone]. This note is constructed using voice recognition software. While every effort has been made to ensure accuracy glass cutting machine operator errors may have been included. Yours sincerely, Dr Keven Bowen MD, [facility] - Urology Providers of Expert, Compassionate Care for the Genitourinary System Coding Level of Care Code Est Pt Level 4 (81751) Diagnoses Erectile dysfunction due to arterial insufficiency N52.01 Erectile dysfunction type: vasculogenic Vasculogenic erectile dysfunction type: due to arterial insufficiency BPH loc w urin obs/LUTS N40.1
== END 2022-11-21 15:17 | disposition home or self-care (01) ==
PROVIDERS: PCP Nurse Practitioner Family; Visit Provider Urology
DX: N52.01 Erectile dysfunction due to arterial insufficiency (principal); N40.1 Benign prostatic hyperplasia with lower urinary tract symptoms
CPT/HCPCS: 99214

== ENCOUNTER → 2022-11-21 14:29 | Outpatient (BNVA) | payer BC, SELFPAY | PROVIDERS: Visit Provider Urology ==

== ENCOUNTER 2023-03-07 12:55 | Outpatient (AMB) | payer MEDICARE, SELFPAY ==
--- NOTE | 2023-03-07 12:59 | A.OFFVIS_ITS ---
Intake Vital Signs 03/07/23 13:02 Height 5 ft 7 in Weight 180 lb 12.465 oz BMI 28.3 BP 120/82 Blood Pressure Location Lt brachial Position Sitting Pulse 75 Intake Visit Reasons: NPV/LBBB/Glogowski Intake Note: NPV [employer] Professor Required: No Accompanied by: Self / Same As Patient Allergies lorazepam [LORAZEPAM] Allergy (Mild, Verified 03/07/23 13:02) TURNS PINK Medication List - Last Reconciled 03/07/23 by You Polk MD amlodipine 2.5 mg PO DAILY atorvastatin 10 mg PO QPM finasteride 5 mg PO DAILY 90 days levothyroxine 100 mcg PO QAM losartan 25 mg PO DAILY metoprolol succinate ER 25 mg PO DAILY tadalafil 20 mg PO ONCE PRN 30 days HPI HPI Comments History of Present Illness Details Pratik is here for consultation regarding left bundle-branch block. Previously seen Dr. Langford. He states that he has had left bundle-branch block for almost 20 years now. Otherwise, no known coronary disease myocardial infarction or any other cardiac issues. He is extremely active with absolutely no limitations. He states that he was just walking almost 10 miles in [place] in steep inclines with no symptoms whatsoever. He is never experienced anginal-type concerns or shortness of breath or in fact anything else along those lines. Seems to be on medicines for high blood pressure. [facility] Medical History (Updated 03/07/23 @ 13:23 by You Polk MD) Atrial septal aneurysm Other specified cataract (~03/20/22) Prostate enlargement (~03/14/19) COVID-19 Elevated cholesterol Hypothyroid Hemorrhoids, thrombosed Elevated PSA [place] disease HTN (hypertension) Surgical History Hx of removal of cyst History of tonsillectomy and adenoidectomy History of melanoma History of colonoscopy Family History Father Colon cancer Mother COPD (chronic obstructive pulmonary disease) Brother No problems noted. Maternal Grandfather No problems noted. Maternal Grandmother No problems noted. Maternal Aunt No problems noted. Maternal Uncle No problems noted. Paternal Aunt No problems noted. Paternal Grandfather No problems noted. Paternal Grandmother No problems noted. Paternal Uncle No problems noted. Social History Household Members: Spouse Housing: Condominium Patient Tobacco Use Status: Never used Tobacco e-Cigarette/Vaping Use: Never Used Second Hand Smoke Exposure: No service: No Current occupational status: employed Current occupation: atty Current occupational exposures/hazards: No Cognitive needs: No Hearing needs: No Vision needs: Yes Review of Systems Const Denies weakness ENT Denies dizziness Card Denies chest pain, Denies chest pain with activity, Denies syncope, Denies rapid heart rate, Denies pedal edema, Denies edema, Denies leg edema, Denies lightheadedness, Denies palpitations, Denies dyspnea, Denies dyspnea on exertion and Denies orthopnea Resp Denies cough, Denies dyspnea and Denies dyspnea on exertion GI Denies hematochezia and Denies change in stool character Musc Denies abnormal gait, Denies muscle cramps, Denies muscle weakness, Denies numbness, Denies radiating pain into limb and Denies tingling Neuro Denies abnormal gait, Denies dizziness, Denies syncope, Denies numbness, Denies tingling and Denies weakness Endo Denies palpitations Physical Exam Vital Signs: Last Vital Signs Pulse 75 03/07/23 13:02 BP 120/82 03/07/23 13:02 BMI result Body Mass Index 28.3 Const General: comfortable and no acute distress Orientation/consciousness: patient oriented x3 HEENT Other: Unremarkable Head: Yes normal to inspection Neck Neck: Yes normal visual inspection Chest Chest palpation & inspection: normal inspection of the chest Resp Auscultation: clear to auscultation bilaterally Cardio Palpation: normal PMI Heart sounds: S1 normal heart sound present, S2 normal heart sound present, no gallops, no murmurs and no rubs GI Palpation (GI): Soft to palpation Back/Spine/Pelvis Other: unremarkable Skin General skin exam: no rashes or lesions noted Neuro General: patient oriented x3 Extrem General: Yes normal to inspection Psych Mental Status: mental status grossly normal Assessment & Plan Assessment & Plan (1) LBBB (left bundle branch block): Code(s): I44.7 - Left bundle-branch block, unspecified Plan: Echocardiogram with LVEF of 50%. Paradoxical septal motion consistent with left bundle-branch block. In 2013, LVEF similar. Myocardial perfusion imaging study from 2013 consistent with left bundle-branch block findings. Pathophysiology of left bundle-branch block explained. As it has been chronic for almost 2 decades with no symptoms will hold off any further workup. We also discussed about possibility of complete heart block in the future and associated symptoms. In that case, will need to seek emergency care. He understands. (2) Atrial septal aneurysm: Code(s): I25.3 - Aneurysm of heart Plan: Echocardiogram shows intra-atrial septal aneurysm bowing to the right. We discussed about this today. Obtain bubble study look for PFO. If any significant shunting, then consider aspirin. (3) HTN (hypertension): Code(s): I10 - Essential (primary) hypertension Plan: Stable on meds. Orders: Orders CA echo limited Today Q21.12 - Patent foramen ovale Coding Level of Care Code New Pt Level 4 (74301) Diagnoses LBBB (left bundle branch block) I44.7 Atrial septal aneurysm I25.3 HTN (hypertension) I10
[2023-03-07 13:02] VITALS: BP 120/82; PULSE 75; BMI 28.3
== END 2023-03-07 13:24 | disposition home or self-care (01) ==
PROVIDERS: PCP Nurse Practitioner Family; Visit Provider Internal Medicine
DX: I44.7 Left bundle-branch block, unspecified (principal); I25.3 Aneurysm of heart; I10 Essential (primary) hypertension
CPT/HCPCS: 99204

== ENCOUNTER → 2023-03-07 12:55 | Outpatient (BNVA) | payer MEDICARE, SELFPAY | PROVIDERS: PCP Nurse Practitioner Family; Visit Provider Internal Medicine | DX: I44.7 Left bundle-branch block, unspecified (principal); I25.3 Aneurysm of heart; I10 Essential (primary) hypertension | CPT/HCPCS: 99202 ==

== ENCOUNTER → 2023-03-20 08:45 | Outpatient (REF) | payer MEDICARE, SELFPAY ==
--- NOTE | 2023-03-20 08:49 | CA_ITS ---
Transthoracic Echocardiogram Patient (Last, First, Middle): Pratik Velez E Gender: Male Date of : 1955 Age: 67 Procedure Date: 03/20/2023 Procedure Type: Transthoracic Echocardiogram Location: OP Height: 170.18 cm Weight: 81.65 kg BSA: 1.93 m2 Heart Rate: 56 bpm BP: 118 / 80 mmHg Belt Cleaner: SB Referring MD: You Polk MD [employer] Setting Machine Operator: Aubrey Varner MD Symptoms: Q21.12 - Patent foramen ovale Study Quality: Adequate ECG Rhythm: Bradycardia Conclusions: - Large PFO with Valsalva Findings [facility] There is an interatrial septal aneurysm seen. Contrast study for right to left shunting is mildly positive. Contrast study for right to left shunting is severely positive with Valsalva maneuver. Patent foramen ovale detected using by contrast. There is evidence of a patent foramen ovale with left to right shunting. Updated in Other Vendor System with Status of Final Aubrey Varner MD electronically signed on 03/20/2023 11:51:03 AM with status of Final
== END ==
LOC: HO.CARD 08:45
PROVIDERS: PCP Nurse Practitioner Family; Visit Provider Internal Medicine
DX: Q21.12 Patent foramen ovale (principal)
CPT/HCPCS: 93308

== ENCOUNTER → 2023-03-20 08:49 | Outpatient (BNV) | payer MEDICARE, SELFPAY | PROVIDERS: PCP Nurse Practitioner Family; Visit Provider Internal Medicine Cardiovascular Disease | DX: Q21.12 Patent foramen ovale (principal) | CPT/HCPCS: 93308 ==

== ENCOUNTER 2023-04-30 12:44 | Outpatient (AMB) | payer MEDICARE, SELFPAY ==
--- NOTE | 2023-04-30 12:46 | A.OFFPC_ITS ---
Vital Signs 04/30/23 12:52 Height 5 ft 7 in Weight 182 lb BMI 28.5 BP 130/76 Blood Pressure Location Lt brachial Position Sitting Pulse 55 Pulse Source Pulse Oximeter Pulse Oximetry (%) 95 Intake Visit Reasons: f/u htn medications Intake Note: pt is here for htn medications [employer] Supervisor Required: No Accompanied by: Self / Same As Patient Allergies lorazepam [LORAZEPAM] Allergy (Mild, Verified 04/30/23 17:03) TURNS PINK Medication List - Last Reconciled 04/30/23 by TAMIA Martínez amlodipine 2.5 mg PO DAILY aspirin (Adult Low Dose Aspirin) 81 mg PO DAILY atorvastatin 10 mg PO QPM finasteride 5 mg PO DAILY 90 days levothyroxine 100 mcg PO QAM losartan 25 mg PO DAILY metoprolol succinate ER 25 mg PO DAILY Tobacco use date assessed: 04/30/23 Fall risk assessment: No Falls in past year Last assessed Fall Risk: 04/30/23 Dental Screening Dental Screen Date: 04/30/23 Did you have a dental visit in the last 12 months?: Yes Did you have a dental problem in the last 6 months where you did not have access to dental care?: No Was dental information given to patient?: Patient has dentist HPI f/u htn medications HPI Details HTN: Blood pressure is stable, managed with amlodipine 2.5mg, losartan 25mg, and metoprolol 25mg. Will order labs. Denies chest pain, shortness of breath, headache, dizziness, and blurred vision. Pt is following up with urology and nephrology. [facility] Medical History Atrial septal aneurysm Other specified cataract (~03/20/22) Prostate enlargement (~03/14/19) COVID-19 Elevated cholesterol Hypothyroid Hemorrhoids, thrombosed Elevated PSA [place] disease HTN (hypertension) Surgical History Hx of removal of cyst History of tonsillectomy and adenoidectomy History of melanoma History of colonoscopy Family History Father Colon cancer Mother COPD (chronic obstructive pulmonary disease) Brother No problems noted. Maternal Grandfather No problems noted. Maternal Grandmother No problems noted. Maternal Aunt No problems noted. Maternal Uncle No problems noted. Paternal Aunt No problems noted. Paternal Grandfather No problems noted. Paternal Grandmother No problems noted. Paternal Uncle No problems noted. Social History Household Members: [facility] Patient Tobacco Use Status: Never used Tobacco e-Cigarette/Vaping Use: Never Used Second Hand Smoke Exposure: No service: No Current occupational status: employed Current occupation: atty Current occupational exposures/hazards: No Cognitive needs: No Hearing needs: No Vision needs: Yes Questionnaire PHQ-9 Over the last 2 weeks, how often have you been bothered by any of the following problems? 1. Little interest or pleasure in doing things: not at all 2. Feeling down, depressed, or hopeless: not at all 3. Trouble falling or staying asleep, or sleeping too much: not at all 4. Feeling tired or having little energy: not at all 5. Poor appetite or overeating: not at all 6. Feeling bad about yourself - or that you are a failure or have let yourself or your family down: not at all 7. Trouble concentrating on things, such as reading the newspaper or watching television: not at all 8. Moving or speaking so slowly that other people could have noticed. Or the opposite - being so fidgety or restless that you have been moving around a lot more than usual: not at all 9. Thoughts that you would be better off or of hurting yourself in some way: not at all Total score: 0 Depression Screening Interpretation: Negative Depression Screening Done: Yes 13561 - PHQ-9 Billing: Yes Source: Developed by Drs. Wong Suárez, Ashley Lake, Robert Plascencia and colleagues, with an educational linda from [employer]. Thrive Questionnaire Date Thrive assessed: 04/30/23 I am a: Patient What is your living situation today?: I have a steady place to live Within the past 12 months, did the food you bought not last and you didn't have the money to get more?: Never true Within the past 12 months, did you worry whether your food would run out before you got money to buy more?: Never true Do you have trouble paying for medicines?: No Do you have trouble getting transportation to medical appointments?: No Do you have trouble paying your heating and electricity bill?: No Do you have trouble taking care of your child, family member or friend?: No Do you have trouble with day-to-day activities such as bathing, preparing meals, shopping, managing finances, etc.?: No Are you currently unemployed and looking for a job?: No Are you interested in more education?: No Please select the resources that you would like help with: None Currently or been in a relationship where the following occur: no concerns reported THRIVE Score: 0 AUDIT C Alcohol Use Questionnaire (AUDIT-C) 1. How often do you have a drink containing alcohol?: Monthly or less 2. How many drinks containing alcohol do you have on a typical day when you are drinking?: 1 or 2 3. How often do you have six or more drinks on one occasion?: Never Total Score: 1 Score Reviewed/Action Taken: Yes TINA-7 AMB Questionnaire TINA-7 Date TINA - 7 assessed: 04/30/23 Feeling nervous, anxious, or on edge: 0 = Not at all Not being able to stop or control worryin = Not at all Worrying too much about different things: 0 = Not at all Trouble relaxin = Not at all Being so restless that it is hard to sit still: 0 = Not at all Becoming easily annoyed or irritable: 0 = Not at all Feeling afraid as if something awful might happen: 0 = Not at all Total TINA-7 score (0-4 normal; 5-9 mild; 10-14 moderate; 15-21 severe): 0 Source: Developed by Drs. Wong Suárez, Ashley Lake, Robert Plascencia and colleagues, with an educational linda from [employer]. TINA-7 Assessment Billing TINA-7 Assessment Tool: TINA-7 Assessment 08129 Review of Systems Const Reports as per HPI Physical exam (Primary Care) Vital Signs: Last Vital Signs Pulse 55 04/30/23 12:52 BP 130/76 04/30/23 12:52 Pulse Ox 95 04/30/23 12:52 BMI result Body Mass Index 28.5 Tobacco/Smoking Status: Tobacco use Status Tobacco use date assessed 04/30/23 04/30/23 12:56 Patient Tobacco Use Status Never used Tobacco 04/30/23 12:47 e-Cigarette/Vaping Use Never Used 04/30/23 12:47 PHQ-9: PHQ-9 Score PHQ-9: Total score 0 04/30/23 13:17 Depression Screening Interpretation: Negative Thrive Assessment: Date of Thrive Assessment Date Thrive assessed 04/30/23 04/30/23 13:02 Currently or been in a relationship where the following occur: no concerns reported Const General: cooperative and healthy appearing Orientation/consciousness: patient oriented x3 Resp Effort & Inspection: normal respiratory effort Auscultation: clear to auscultation bilaterally Cardio Rate: regular rate Rhythm: regular rhythm Heart sounds: S1 normal heart sound present and S2 normal heart sound present Neuro General: patient oriented x3 Extrem Right lower extremity: no edema Left lower extremity: no edema Psych Appearance: grossly normal Mental Status: mental status grossly normal Speech and movement: Normal speech and movement present Affect: normal affect Attitude: cooperative Thought process: Normal thought process present Thought content: Normal thought content present Insight: Good insight present (Psych) Judgement: Good judgement present (Psych) Assessment and Plan Assessment & Plan (1) HTN (hypertension): Code(s): I10 - Essential (primary) hypertension Plan: Stable, labs ordered Plan The patient agreed to the use of a medical billing assistant for this encounter. Scribed for TAMIA Madison by Margarita Garcia medical billing assistant, on 04/30/2023 at 13:15 EST. Orders: Orders Complete Blood Count Auto Diff Today I10 - Essential (primary) hypertension Comprehensive [place]. Panel Fast Today I10 - Essential (primary) hypertension TSH reflex Free T4 Today I10 - Essential (primary) hypertension Lipid Panel Today I10 - Essential (primary) hypertension UA CC w/rflx Micro + Cult Today I10 - Essential (primary) hypertension Coding Level of Care Code Est Pt Level 3 (49005) Diagnoses HTN (hypertension) I10 Additional Codes TINA-7 Assessment Billing - TINA-7 Assessment Tool: TINA-7 Assessment 32934 ([id number])
[2023-04-30 12:52] VITALS: BP 130/76; PULSE 55; O2SAT 95; BMI 28.5
== END 2023-04-30 13:59 | disposition home or self-care (01) ==
PROVIDERS: PCP Nurse Practitioner Family; Visit Provider Nurse Practitioner Family
DX: I10 Essential (primary) hypertension (principal)
CPT/HCPCS: 99213

== ENCOUNTER 2023-05-14 06:03 | Outpatient (REF) | payer MEDICARE, SELFPAY ==
[2023-05-14 06:25] LABS: MANUAL DIFF FLAG NO
[2023-05-14 07:20] LABS: Basophils Absolute Auto 0.1 X10*3/uL (0.0-0.2); Basophils Percent Auto 1.7 % (0-2); Eosinophils Absolute Auto 0.3 X10*3/uL (0.0-0.4); Eosinophils Percent Auto 7.7 % (0-4); Hematocrit 46.2 % (42.0-52.0); Hemoglobin 15.7 g/dl (14.0-18.0); Imm Gran Abs Auto 0.02 X10*3/uL (0.00-0.03); Imm Gran Pct Auto 0.5 % (0.0-0.4); Lymphocytes Absolute Auto 1.7 X10*3/uL (1.2-4.9); Mean Corpuscular Hemoglobin 30.1 pg (27.0-33.0); Mean Corpuscular Volume 88.7 fL (80.0-98.0); Mean Platelet Volume 9.3 fL (9.4-12.4); Monocytes Absolute Auto 0.4 X10*3/uL (0.1-1.2); Monocytes Percent Auto 9.1 % (2-11); Neutrophils Absolute Auto 1.7 x10*3/uL (2.0-8.3); Platelet Count 259 X10*3/uL (160-400); Red Blood Count 5.21 X10*6/uL (4.60-5.80); Red Cell Distribution Width 12.5 % (11.0-16.0); White Blood Count 4.2 X10*3/uL (4.8-10.8)
[2023-05-14 07:22] LABS: Appearance Urine Clear; Color Urine Yellow; Glucose Urine UA Negative (Negative); Leukocyte Esterase Urine Trace (Negative); Nitrite Urine Negative (Negative); PH 5.5 (5.0-9.0); Specific Gravity - Urine 1.015 (1.005-1.025); UMIC TRIGGER UACC YES; Urine Blood Negative (Negative); Urine Ketones Negative (Negative); Urine Protein Negative (Neg-Trace)
[2023-05-14 07:27] LABS: Bacteria Urine None Seen (None Seen); Hyaline Casts Urine 0-2 /LPF (0-2); RBC Urine 0-2 /HPF (0-2); Squamous Epithelial Cell Urine 0-2 /HPF (0-2); WBC Urine 0-5 /HPF (0-5)
[2023-05-14 08:06] LABS: Creatinine Urine 205.78 mg/dL; Microalbum/Creatinine Ratio Ur 21.3 ug/mg cr (<30)
[2023-05-14 08:06] LABS: Anion Gap 13 (12-20); Blood Urea Nitrogen 18 mg/dL (9-16); Calcium 9.6 mg/dL (8.4-10.2); Carbon Dioxide 26 mmol/L (22-29); Chloride 105 mmol/L (96-108); Estimated Glomerular Filt Rate 48; Potassium 4.2 mmol/L (3.3-5.1); Sodium 140 mmol/L (135-145)
[2023-05-14 08:10] LABS: Alanine Aminotransferase 15 U/L (0-40); Albumin Level 4.1 g/dL (3.5-5.0); Alkaline Phosphatase 92 U/L (39-117); Anion Gap 13 (12-20); Aspartate Amino Transferase 14 U/L (5-37); Blood Urea Nitrogen 17 mg/dL (9-16); Calcium 9.3 mg/dL (8.4-10.2); Carbon Dioxide 25 mmol/L (22-29); Chloride 106 mmol/L (96-108); Cholesterol 165 mg/dL (<200); Estimated Glomerular Filt Rate 51; Glucose Fasting 101 mg/dL (60-99); HDL Cholesterol 39 mg/dL (>40); LDL Cholesterol Calculated 102 mg/dL (<100); Potassium 4.3 mmol/L (3.3-5.1); Sodium 140 mmol/L (135-145); Total Protein 6.7 g/dL (6.5-8.0); Triglycerides 123 mg/dL (<150)
[2023-05-14 08:16] LABS: Vitamin D 25-OH Total 33.4 ng/mL (>30)
[2023-05-14 08:17] LABS: TSH reflex Free T4 1.05 uIU/mL (0.32-4.0)
[2023-05-14 08:19] LABS: PSA,Total (Free>4and<10) 2.74 ng/mL (0.00-4.00)
== END 2023-05-14 06:04 | disposition home or self-care (01) ==
LOC: HO.LAB 06:03
PROVIDERS: Internal Medicine Nephrology; Absent Provider Urology; PCP Nurse Practitioner Family; Visit Provider Nurse Practitioner Family
DX: R97.20 Elevated prostate specific antigen [PSA] (principal); I12.9 Hypertensive chronic kidney disease with stage 1 through stage 4 chronic kidney disease, or unspecified chronic kidney disease; N18.31 Chronic kidney disease, stage 3a; Z12.5 Encounter for screening for malignant neoplasm of prostate
CPT/HCPCS: 36415; 80051; 80053; 80061; 81001; 82043; 82306; 82310; 82565; 82570; 83970; 84153; 84443; 84520; 85025

== ENCOUNTER 2023-05-28 14:03 | Outpatient (AMB) | payer MEDICARE, SELFPAY ==
--- NOTE | 2023-05-28 14:04 | A.OFFVIS_ITS ---
Intake Intake Visit Reasons: PSA/Medication Review(set)confirmed Allergies lorazepam [LORAZEPAM] Allergy (Mild, Verified 04/30/23 17:03) TURNS PINK Medication List - Last Reconciled 05/28/23 by Keven Bowen MD amlodipine 2.5 mg PO DAILY aspirin (Adult Low Dose Aspirin) 81 mg PO DAILY atorvastatin 10 mg PO QPM finasteride 5 mg PO DAILY 90 days levothyroxine 100 mcg PO QAM losartan 25 mg PO DAILY metoprolol succinate ER 25 mg PO DAILY HPI HPI Comments History of Present Illness Details Pratik is a pleasant male. He is a patient of Dr. Carver. He is seen for the following urologic conditions - lower urinary tract symptoms - elevated PSA - erectile dysfunction Telemedicine Evaluation 15 min Consultation [email or web address] Francisco J Video attempted Follow-up from trial on demand Cialis Successful Would like to continue Finasteride every other day, PSA remaining stable 2.7 Good urinary parameters Six-month follow-up PSA Erectile dysfunction On demand Cialis 20 mg Elevated PSA/Abnormal JESUS: Current management is GreenLight laser prostatectomy 03/17 and finasteride Laboratory investigations include 12/12 PSA 5.1 03/15 PSA 5.8, 04/15 PSA 7.9, 05/13 PSA 6.9, 07/13 PSA 8.2 35%, 11/13 9.3, 12/13 TRUS negative 65gm, 06/14 7.0, 12/14 7.0 - 04/17 3.7, 11/15 5.2 F 30%, 05/16 2.8, 11/16 1.9, 04/19 2.1, 11/17 2.3, 05/18 2.7 Prostate biopsy 12/13 NAD - BPH Symptoms include 05/13 , straining 06/14 , weak stream, and are stable Imaging - 12/14 renal ultrasound. NAD. [facility] Medical History Atrial septal aneurysm Other specified cataract (~03/20/22) Prostate enlargement (~03/14/19) COVID-19 Elevated cholesterol Hypothyroid Hemorrhoids, thrombosed Elevated PSA [place] disease HTN (hypertension) Surgical History Hx of removal of cyst History of tonsillectomy and adenoidectomy History of melanoma History of colonoscopy Family History Father Colon cancer Mother COPD (chronic obstructive pulmonary disease) Brother No problems noted. Maternal Grandfather No problems noted. Maternal Grandmother No problems noted. Maternal Aunt No problems noted. Maternal Uncle No problems noted. Paternal Aunt No problems noted. Paternal Grandfather No problems noted. Paternal Grandmother No problems noted. Paternal Uncle No problems noted. Social History Household Members: Spouse Housing: Condominium Patient Tobacco Use Status: Never used Tobacco e-Cigarette/Vaping Use: Never Used Second Hand Smoke Exposure: No service: No Current occupational status: employed Current occupation: atty Current occupational exposures/hazards: No Cognitive needs: No Hearing needs: No Vision needs: Yes Review of Systems Const All systems reviewed & are unremarkable except as noted in HPI and below Reports no additional complaints Resp Reports no additional complaints GI Reports no additional complaints Reports as per HPI Musc Reports no additional complaints Physical Exam Telemedicine evaluation Appropriate responses Regular breathing rate and rhythm HEENT Head: Yes normal to inspection Ears: hearing grossly normal bilaterally Eyes General: appearance normal, both eyes and all related structures Neck Neck: Yes normal visual inspection Chest Chest palpation & inspection: normal inspection of the chest Resp Effort & Inspection: normal respiratory effort and able to speak in complete sentences Assessment & Plan Assessment & Plan (1) BPH loc w urin obs/LUTS: Code(s): N40.1 - Benign prostatic hyperplasia with lower urinary tract symptoms (2) Erectile dysfunction: Code(s): N52.9 - Male erectile dysfunction, unspecified Qualifiers: Erectile dysfunction type: vasculogenic Vasculogenic erectile dysfunction type: due to arterial insufficiency Qualified Code(s): N52.01 - Erectile dysfunction due to arterial insufficiency Plan Six-month follow-up Orders: Orders Prostate Specific Antigen 6 Months N40.1 - Benign prostatic hyperplasia with lower urinary tract symptoms Medications: Refilled finasteride 5 mg PO DAILY 90 tabs 1RF 90 days N40.1 - Benign prostatic hyperplasia with lower urinary tract symptoms Patient Instructions: Imaging studies, laboratory and physical exam results were discussed and reviewed in detail. No major barriers to patient understanding were identified. An opportunity to ask questions regarding the treatment plan was provided. All questions were answered. The patient expressed understanding and agreement with the above treatment plan. The patient is aware they should contact our office by phone for worsening of their current condition or the appearance of new urologic symptoms. Compliance is encouraged with any medications and followup testing that is ordered. It is a privilege to participate in the urologic care of your patient. If you have any questions or concerns regarding treatment for the above conditions, or other urologic issues, please do not hesitate to contact me. The office telephone contact is [phone]. This note is constructed using voice recognition software. While every effort has been made to ensure accuracy food processing plant manager errors may have been included. Yours sincerely, Dr Keven Bowen MD, JO[facility] - Urology Providers of Expert, Compassionate Care for the Genitourinary System Telehealth Telehealth Location of provider rendering services: practice address Location of patient: address on file Patient Identification confirmed using: Name, : Yes Telehealth method: voice only Patient verbally consented to treatment: Yes Patient verbally consented to billing insurance company: Yes Patient informed of any privacy concerns related to visit: Yes Coding Level of Care Code Tele Est Pt Level 3 (76972) Diagnoses BPH loc w urin obs/LUTS N40.1 Erectile dysfunction due to arterial insufficiency N52.01 Erectile dysfunction type: vasculogenic Vasculogenic erectile dysfunction type: due to arterial insufficiency
== END 2023-05-28 14:31 | disposition home or self-care (01) ==
LOC: HO.HUSH 14:03
PROVIDERS: PCP Nurse Practitioner Family; Visit Provider Urology
DX: N40.1 Benign prostatic hyperplasia with lower urinary tract symptoms (principal); N52.01 Erectile dysfunction due to arterial insufficiency
CPT/HCPCS: 99442

== ENCOUNTER → 2023-05-28 14:03 | Outpatient (BNVA) | payer MEDICARE, SELFPAY | PROVIDERS: PCP Nurse Practitioner Family; Visit Provider Urology ==

== ENCOUNTER 2023-10-14 12:09 | Outpatient (AMB) | payer MEDICARE, SELFPAY ==
[2023-10-14 12:28] VITALS: BP 138/76; PULSE 72; O2SAT 97; BMI 27.1
--- NOTE | 2023-10-14 12:28 | MHC.PC.OV ---
Vital Signs 10/14/23 12:28 Height 5 ft 7 in Weight 173 lb BMI 27.1 BP 138/76 Blood Pressure Location Rt brachial Position Sitting Pulse 72 Pulse Source Pulse Oximeter Pulse Oximetry (%) 97 Oxygen Delivery Method Room Air Intake Visit Reasons: Annual PE Intake Note: pt is here for annual exam Principal Administrative Clerk Required: No Accompanied by: Self / Same As Patient Allergies lorazepam [LORAZEPAM] Allergy (Mild, Verified 10/14/23 12:29) TURNS PINK Tobacco use date assessed: 10/14/23 Fall risk assessment: No Falls in past year Last assessed Fall Risk: 10/14/23 Dental Screening Dental Screen Date: 04/30/23 HPI Annual PE HPI Details Pt is here for a PE. Will order labs. Colon screen is up to date. PSA is up to date, sees urology. Pt follows up with nephrology as well. [facility] Medical History Atrial septal aneurysm Other specified cataract (~03/20/22) Prostate enlargement (~03/14/19) COVID-19 Elevated cholesterol Hypothyroid Hemorrhoids, thrombosed Elevated PSA [place] disease HTN (hypertension) Surgical History Hx of removal of cyst History of tonsillectomy and adenoidectomy History of melanoma History of colonoscopy Family History Father Colon cancer Mother COPD (chronic obstructive pulmonary disease) Brother No problems noted. Maternal Grandfather No problems noted. Maternal Grandmother No problems noted. Maternal Aunt No problems noted. Maternal Uncle No problems noted. Paternal Aunt No problems noted. Paternal Grandfather No problems noted. Paternal Grandmother No problems noted. Paternal Uncle No problems noted. Social History Household Members: Spouse Housing: Condominium Patient Tobacco Use Status: Never used Tobacco e-Cigarette/Vaping Use: Never Used Second Hand Smoke Exposure: No service: No Current occupational status: employed Current occupation: atty Current occupational exposures/hazards: No Cognitive needs: No Hearing needs: No Vision needs: Yes Questionnaire PHQ-9 Over the last 2 weeks, how often have you been bothered by any of the following problems? 1. Little interest or pleasure in doing things: not at all 2. Feeling down, depressed, or hopeless: not at all 3. Trouble falling or staying asleep, or sleeping too much: not at all 4. Feeling tired or having little energy: not at all 5. Poor appetite or overeating: not at all 6. Feeling bad about yourself - or that you are a failure or have let yourself or your family down: not at all 7. Trouble concentrating on things, such as reading the newspaper or watching television: not at all 8. Moving or speaking so slowly that other people could have noticed. Or the opposite - being so fidgety or restless that you have been moving around a lot more than usual: not at all 9. Thoughts that you would be better off or of hurting yourself in some way: not at all Total score: 0 Depression Screening Interpretation: Negative Depression Screening Done: Yes 32367 - PHQ-9 Billing: Yes Source: Developed by Drs. Wong Suárez, Ashley Lake, Robert Plascencia and colleagues, with an educational linda from [employer]. Thrive Questionnaire Date Thrive assessed: 10/07/23 I am a: Patient What is your living situation today?: I have a steady place to live Within the past 12 months, did the food you bought not last and you didn't have the money to get more?: Never true Within the past 12 months, did you worry whether your food would run out before you got money to buy more?: Never true Do you have trouble paying for medicines?: No Do you have trouble getting transportation to medical appointments?: No Do you have trouble paying your heating and electricity bill?: No Do you have trouble taking care of your child, family member or friend?: No Do you have trouble with day-to-day activities such as bathing, preparing meals, shopping, managing finances, etc.?: No Are you currently unemployed and looking for a job?: No Are you interested in more education?: No Please select the resources that you would like help with: None Currently or been in a relationship where the following occur: No concerns reported THRIVE Score: 0 AUDIT C Alcohol Use Questionnaire (AUDIT-C) 1. How often do you have a drink containing alcohol?: 2-4 times a month 2. How many drinks containing alcohol do you have on a typical day when you are drinking?: 1 or 2 3. How often do you have six or more drinks on one occasion?: Never Total Score: 2 TINA-7 AMB Questionnaire TINA-7 Date TINA - 7 assessed: 04/30/23 Feeling nervous, anxious, or on edge: 0 = Not at all Not being able to stop or control worryin = Not at all Worrying too much about different things: 0 = Not at all Trouble relaxin = Not at all Being so restless that it is hard to sit still: 0 = Not at all Becoming easily annoyed or irritable: 0 = Not at all Feeling afraid as if something awful might happen: 0 = Not at all Total TINA-7 score (0-4 normal; 5-9 mild; 10-14 moderate; 15-21 severe): 0 Source: Developed by Drs. Wong Suárez, Ashley Lake, Robert Plascencia and colleagues, with an educational linda from [employer]. TINA-7 Assessment Billing TINA-7 Assessment Tool: TINA-7 Assessment 65365 Review of Systems Const Denies chills and Denies fever(s) Eyes Denies blurry vision ENT Denies vertigo, Denies dizziness and Denies sore throat Card Denies chest pain at rest, Denies chest pain with activity, Denies diaphoresis, Denies dyspnea and Denies dyspnea on exertion Resp Denies cough, Denies dyspnea, Denies dyspnea on exertion and Denies wheezing GI Denies abdominal pain, Denies melena, Denies hematochezia, Denies constipation, Denies diarrhea and Denies loose stools Denies hematuria Musc Denies numbness and Denies tingling Skin/Breast Denies lesions Neuro Denies vertigo, Denies dizziness, Denies numbness and Denies tingling Psych Denies anxiety, Denies depression, Denies homicidal ideation, Denies suicidal ideation and Denies other (substance abuse) Aller/Immun Denies wheezing Physical exam (Primary Care) Vital Signs: Last Vital Signs Pulse 72 10/14/23 12:28 BP 138/76 10/14/23 12:28 Pulse Ox 97 08/19/24 12:28 Oxygen Delivery Method Room Air 10/14/23 12:28 BMI result Body Mass Index 27.1 Tobacco/Smoking Status: Tobacco use Status Tobacco use date assessed 10/14/23 10/14/23 12:30 Patient Tobacco Use Status Never used Tobacco 10/14/23 12:28 e-Cigarette/Vaping Use Never Used 10/14/23 12:28 PHQ-9: PHQ-9 Score PHQ-9: Total score 0 10/14/23 12:48 Depression Screening Interpretation: Negative Thrive Assessment: Date of Thrive Assessment Date Thrive assessed 10/07/23 10/14/23 12:28 Currently or been in a relationship where the following occur: No concerns reported Const General: cooperative Nutritional Appearance: well nourished Orientation/consciousness: patient oriented x3 HENMT Head: Yes normal to inspection, Yes normocephalic and Yes atraumatic Ears: TM's normal bilaterally Eyes General: appearance normal, both eyes and all related structures Alignment and Position: alignment normal and position normal Neck Neck: Yes normal visual inspection and Yes no lymphadenopathy Thyroid: Thyroid normal Resp Effort & Inspection: normal respiratory effort Auscultation: clear to auscultation bilaterally Cardio Rate: regular rate Rhythm: regular rhythm Heart sounds: S1 normal heart sound present, S2 normal heart sound present and no murmurs GI Palpation (GI): Soft to palpation and nontender Auscultation: normal bowel sounds Male General Exam: Yes normal external exam Penis: normal penis Scrotum: scrotum normal, testes descended bilaterally and no inguinal hernias Testes: no testicular mass Skin Rashes: no rashes Neuro General: patient oriented x3, moves all extremities, no focal motor deficits and deep tendon reflexes 2+ bilaterally Romberg Test: Negative Psych Appearance: grossly normal Mental Status: mental status grossly normal Speech and movement: Normal speech and movement present Affect: normal affect Attitude: cooperative Thought process: Normal thought process present Thought content: Normal thought content present Insight: Good insight present (Psych) Judgement: Good judgement present (Psych) Assessment and Plan Assessment & Plan (1) Physical exam: Code(s): Z00.00 - Encounter for general adult medical examination without abnormal findings Plan: Labs ordered Plan The patient agreed to the use of a medical staff manager for this encounter. Scribed for JOSEPH MadisonBC by Margarita Garcia, medical staff manager, on 10/14/2023 at 12:50 EST. Orders: Orders Complete Blood Count Auto Diff Today Z00.00 - Encounter for general adult medical examination without abnormal findings TSH reflex Free T4 Today Z00.00 - Encounter for general adult medical examination without abnormal findings Comprehensive Gladys. Panel Fast Today Z00.00 - Encounter for general adult medical examination without abnormal findings UA CC w/rflx Micro + Cult Today Z00.00 - Encounter for general adult medical examination without abnormal findings Lipid Panel Today Z00.00 - Encounter for general adult medical examination without abnormal findings Coding Level of Care Code Est Pt Prev Care >65y(52421) Diagnoses Physical exam Z00.00 Additional Codes TINA-7 Assessment Billing - TINA-7 Assessment Tool: TINA-7 Assessment [id number] ([id number])
== END 2023-10-14 12:59 | disposition home or self-care (01) ==
PROVIDERS: PCP Nurse Practitioner Family; Visit Provider Nurse Practitioner Family
DX: Z00.00 Encounter for general adult medical examination without abnormal findings (principal)
CPT/HCPCS: 99397

== ENCOUNTER 2023-11-13 06:03 | Outpatient (REF) | payer MEDICARE, SELFPAY ==
[2023-11-13 06:30] LABS: MANUAL DIFF FLAG NO
[2023-11-13 07:07] LABS: Basophils Absolute Auto 0.1 X10*3/uL (0.0-0.2); Basophils Percent Auto 1.9 % (0-2); Eosinophils Absolute Auto 0.5 X10*3/uL (0.0-0.4); Eosinophils Percent Auto 11.1 % (0-4); Hematocrit 41.3 % (42.0-52.0); Hemoglobin 14.3 g/dl (14.0-18.0); Imm Gran Abs Auto 0.02 X10*3/uL (0.00-0.03); Imm Gran Pct Auto 0.5 % (0.0-0.4); Lymphocytes Percent Auto 48.1 % (20-40); Mean Corpuscular HGB Conc 34.6 g/dl (31.0-36.0); Mean Corpuscular Hemoglobin 30.4 pg (27.0-33.0); Mean Corpuscular Volume 87.9 fL (80.0-98.0); Monocytes Absolute Auto 0.4 X10*3/uL (0.1-1.2); Monocytes Percent Auto 10.6 % (2-11); Neutrophils Absolute Auto 1.2 x10*3/uL (2.0-8.3); Neutrophils Percent Auto 27.8 % (45-73); Platelet Count 212 X10*3/uL (160-400); Red Cell Distribution Width 12.7 % (11.0-16.0); White Blood Count 4.2 X10*3/uL (4.8-10.8)
[2023-11-13 07:37] LABS: Appearance Urine Clear; Color Urine Yellow; Glucose Urine UA Negative (Negative); Leukocyte Esterase Urine Negative (Negative); Nitrite Urine Negative (Negative); PH 5.5 (5.0-9.0); Urine Blood Negative (Negative); Urine Ketones Negative (Negative); Urine Protein Negative (Neg-Trace)
[2023-11-13 07:44] LABS: Alanine Aminotransferase 13 U/L (0-40); Albumin Level 3.9 g/dL (3.5-5.0); Alkaline Phosphatase 69 U/L (39-117); Anion Gap 12 (12-20); Aspartate Amino Transferase 11 U/L (5-37); Bilirubin Total 1.6 mg/dL (0.0-1.0); Blood Urea Nitrogen 26 mg/dL (9-16); Calcium 9.5 mg/dL (8.4-10.2); Carbon Dioxide 22 mmol/L (22-29); Chloride 111 mmol/L (96-108); Cholesterol 139 mg/dL (<200); Estimated Glomerular Filt Rate 47; Glucose Fasting 108 mg/dL (60-99); HDL Cholesterol 41 mg/dL (>40); LDL Cholesterol Calculated 83 mg/dL (<100); Potassium 3.9 mmol/L (3.3-5.1); Sodium 141 mmol/L (135-145); Total Protein 6.3 g/dL (6.5-8.0); Triglycerides 75 mg/dL (<150)
[2023-11-13 07:53] LABS: Prostate Specific Antigen 2.31 ng/mL (<0.05-4.0)
[2023-11-13 08:01] LABS: TSH reflex Free T4 0.18 uIU/mL (0.32-4.0)
[2023-11-13 09:55] LABS: Free T4 (Free Thyroxine) 1.26 ng/dL (0.71-1.85)
== END 2023-11-13 06:04 | disposition home or self-care (01) ==
LOC: HO.LAB 06:03
PROVIDERS: Urology; PCP Nurse Practitioner Family; Visit Provider Nurse Practitioner Family
DX: Z00.00 Encounter for general adult medical examination without abnormal findings (principal); I10 Essential (primary) hypertension; N40.1 Benign prostatic hyperplasia with lower urinary tract symptoms; N13.8 Other obstructive and reflux uropathy; Z12.5 Encounter for screening for malignant neoplasm of prostate
CPT/HCPCS: 36415; 80053; 80061; 81003; 84153; 84439; 84443; 85025

== ENCOUNTER 2023-11-26 08:15 | Outpatient (REF) | payer MEDICARE, SELFPAY ==
[2023-11-26 10:59] LABS: MANUAL DIFF FLAG NO
[2023-11-26 11:12] LABS: Appearance Urine Clear; Color Urine Yellow; Glucose Urine UA Negative (Negative); Leukocyte Esterase Urine Negative (Negative); Nitrite Urine Negative (Negative); PH 5.5 (5.0-9.0); Urine Blood Negative (Negative); Urine Ketones Negative (Negative); Urine Protein Negative (Neg-Trace)
[2023-11-26 11:23] LABS: Basophils Absolute Auto 0.1 X10*3/uL (0.0-0.2); Basophils Percent Auto 2.2 % (0-2); Eosinophils Absolute Auto 0.3 X10*3/uL (0.0-0.4); Eosinophils Percent Auto 6.2 % (0-4); Hematocrit 43.4 % (42.0-52.0); Hemoglobin 14.7 g/dl (14.0-18.0); Imm Gran Abs Auto 0.02 X10*3/uL (0.00-0.03); Imm Gran Pct Auto 0.5 % (0.0-0.4); Lymphocytes Absolute Auto 1.8 X10*3/uL (1.2-4.9); Lymphocytes Percent Auto 43.2 % (20-40); Mean Corpuscular HGB Conc 33.9 g/dl (31.0-36.0); Mean Corpuscular Volume 88.6 fL (80.0-98.0); Mean Platelet Volume 9.7 fL (9.4-12.4); Monocytes Absolute Auto 0.4 X10*3/uL (0.1-1.2); Monocytes Percent Auto 10.1 % (2-11); Neutrophils Absolute Auto 1.5 x10*3/uL (2.0-8.3); Neutrophils Percent Auto 37.8 % (45-73); Platelet Count 230 X10*3/uL (160-400); Red Cell Distribution Width 12.6 % (11.0-16.0); White Blood Count 4.1 X10*3/uL (4.8-10.8)
[2023-11-26 11:42] LABS: TSH reflex Free T4 (Prenatal) 0.16 uIU/mL
== END 2023-11-26 08:16 | disposition home or self-care (01) ==
LOC: HO.WFDLDS 08:15
PROVIDERS: Visit Provider Nurse Practitioner Family
DX: Z00.00 Encounter for general adult medical examination without abnormal findings (principal); I10 Essential (primary) hypertension; E03.9 Hypothyroidism, unspecified; R97.20 Elevated prostate specific antigen [PSA]
CPT/HCPCS: 36415; 81003; 84443; 85025

== ENCOUNTER 2023-11-27 13:00 | Outpatient (AMB) | payer MEDICARE, SELFPAY ==
--- NOTE | 2023-11-27 13:26 | MHC.OFFVIS ---
Intake Visit Reasons: 6M Follow Up-PSA(set) Intake Note: Patient is Present for 6M Follow Up PSA Urology Medication: Finasteride Antibiotic Allergies: None Blood Thinners: None Medical Officer Psychiatry Required: No Allergies lorazepam [LORAZEPAM] Allergy (Mild, Verified 11/27/23 13:27) TURNS PINK HPI Comments Details: Pratik is a pleasant male. He is a patient of Dr. Carver. He is seen for the following urologic conditions - lower urinary tract symptoms - elevated PSA - erectile dysfunction Six-month follow-up Continue good response with good urinary flow Finasteride every other day, PSA remaining stable at 2.3 Good urinary parameters Following 12 months Erectile dysfunction On demand Cialis 20 mg Elevated PSA/Abnormal JESUS: Current management is GreenLight laser prostatectomy 03/17 and finasteride Laboratory investigations include 12/12 PSA 5.1 03/15 PSA 5.8, 04/15 PSA 7.9, 05/13 PSA 6.9, 07/13 PSA 8.2 35%, 11/13 9.3, 12/13 TRUS negative 65gm, 06/14 7.0, 12/14 7.0 - 04/17 3.7, 11/15 5.2 F 30%, 05/16 2.8, 11/16 1.9, 04/19 2.1, 11/17 2.3, 05/18 2.7, 11/18 2.3 Prostate biopsy 12/13 NAD - BPH Symptoms include 05/13 , straining 06/14 , weak stream, and are stable Imaging - 12/14 renal ultrasound. NAD. [facility] Medical History Atrial septal aneurysm Other specified cataract (~03/20/22) Prostate enlargement (~03/14/19) COVID-19 Elevated cholesterol Hypothyroid Hemorrhoids, thrombosed Elevated PSA [place] disease HTN (hypertension) Surgical History Hx of removal of cyst History of tonsillectomy and adenoidectomy History of melanoma History of colonoscopy Family History Father Colon cancer Mother COPD (chronic obstructive pulmonary disease) Brother No problems noted. Maternal Grandfather No problems noted. Maternal Grandmother No problems noted. Maternal Aunt No problems noted. Maternal Uncle No problems noted. Paternal Aunt No problems noted. Paternal Grandfather No problems noted. Paternal Grandmother No problems noted. Paternal Uncle No problems noted. Social History Household Members: [facility] Tobacco Use Status: Never used Tobacco e-Cigarette/Vaping Use: Never Used Second Hand Smoke Exposure: No service: No Current occupational status: employed Current occupation: atty Current occupational exposures/hazards: No Cognitive needs: No Hearing needs: No Vision needs: Yes Review of Systems Const Denies chills and Denies fever(s) Card Reports no additional complaints and Denies syncope Resp Denies cough GI Denies abdominal pain and Denies heartburn Reports as per HPI and Denies change in libido Neuro Denies syncope Psych Denies change in libido Endo Denies change in libido Physical Exam Const General: cooperative, healthy appearing, comfortable and no acute distress Orientation/consciousness: patient oriented x3 HEENT Face and sinus: Yes normal facial exam Mouth: moist mucous membranes Neck Neck: Yes normal visual inspection, Yes full ROM and Yes trachea midline Chest Chest palpation & inspection: normal inspection of the chest Resp Effort & Inspection: normal respiratory effort, able to speak in complete sentences and no respiratory distress GI Inspection: Yes normal to inspection Back/Spine/Pelvis Cervical Spine: normal cervical lordosis Thoracic/Lumbar Spine: thoracic and lumbar spine normal to inspection Skin General skin exam: no rashes or lesions noted Neuro General: patient oriented x3, gait normal, tone normal and moves all extremities Extrem General: Yes normal to inspection and Yes capillary refill normal Results AMB Urinalysis, Automated UA Leukoctes 0 Jelani/uL Last Edit by ALLISON Steve on 11/27/23 13:43 UA Nitrite Negative Last Edit by ALLISON Steve on 11/27/23 13:43 UA Urobilinogen 0.2 mg/dL Last Edit by ALLISON Steve on 11/27/23 13:43 UA Protein 15 mg/dL Last Edit by ALLISON Steve on 11/27/23 13:43 UA pH 6.0 Last Edit by ALLISON Steve on 11/27/23 13:43 UA Blood 0 Jose Miguel/uL Last Edit by ALLISON Steve on 11/27/23 13:43 UA Specific [place] 1.025 Last Edit by ALLISON Steve on 11/27/23 13:43 UA Ketone Positive Last Edit by ALLISON Setve on 11/27/23 13:43 UA Bilirubin 0 mg/dL Last Edit by ALLISON Steve on 11/27/23 13:43 UA Glucose 0 mg/dL Last Edit by ALLISON Steve on 11/27/23 13:43 Results Reviewed Results Reviewed: Laboratory Last Values Urine pH (Auto) 6.0 11/27/23 13:42 Specific [place] (Auto) 1.025 11/27/23 13:42 Urine Protein (Auto) 15 mg/dL 11/27/23 13:42 Glucose (UA)(Auto) 0 mg/dL 11/27/23 13:42 Urine Ketones (Auto) Positive 11/27/23 13:42 Urine Blood (Auto) 0 Jose Miguel/uL 11/27/23 13:42 Urine Nitrite (Auto) Negative 11/27/23 13:42 Urine Bilirubin (Auto) 0 mg/dL 11/27/23 13:42 Urine Urobilinogen (Auto) 0.2 mg/dL 11/27/23 13:42 Leukocyte Esterase (Auto) 0 Jelani/uL 11/27/23 13:42 Assessment & Plan Assessment & Plan (1) BPH loc w urin obs/LUTS: Code(s): N40.1 - Benign prostatic hyperplasia with lower urinary tract symptoms Category: Medical (2) Elevated PSA: Comment: decreasing Code(s): R97.20 - Elevated prostate specific antigen [PSA] Category: Medical Plan 12 month follow-up PSA Orders: Orders AMB Urinalysis Automated Today Z13.9 - Encounter for screening, unspecified Prostate Specific Antigen 364 Days R97.20 - Elevated prostate specific antigen [PSA] Patient Instructions: Imaging studies, laboratory and physical exam results were discussed and reviewed in detail. No major barriers to patient understanding were identified. An opportunity to ask questions regarding the treatment plan was provided. All questions were answered. The patient expressed understanding and agreement with the above treatment plan. The patient is aware they should contact our office by phone for worsening of their current condition or the appearance of new urologic symptoms. Compliance is encouraged with any medications and followup testing that is ordered. It is a privilege to participate in the urologic care of your patient. If you have any questions or concerns regarding treatment for the above conditions, or other urologic issues, please do not hesitate to contact me. The office telephone contact is [phone]. This note is constructed using voice recognition software. While every effort has been made to ensure accuracy safety admin assistant errors may have been included. Yours sincerely, Dr Keven Bowen MD, [facility] - Urology Providers of Expert, Compassionate Care for the Genitourinary System Coding Level of Care Code Est Pt Level 3 (94282) Diagnoses BPH loc w urin obs/LUTS N40.1 Elevated PSA R97.20
== END 2023-11-27 14:25 | disposition home or self-care (01) ==
PROVIDERS: PCP Nurse Practitioner Family; Visit Provider Urology
DX: Z13.9 Encounter for screening, unspecified (principal)
CPT/HCPCS: 99213

== ENCOUNTER → 2023-11-27 13:00 | Outpatient (BNVA) | payer MEDICARE, SELFPAY | PROVIDERS: PCP Nurse Practitioner Family; Visit Provider Urology | DX: N40.1 Benign prostatic hyperplasia with lower urinary tract symptoms (principal); R97.20 Elevated prostate specific antigen [PSA] | CPT/HCPCS: 81003; 99212 ==

== ENCOUNTER 2024-08-31 14:59 | Outpatient (REF) | payer MEDICARE, SELFPAY ==
--- OUTSIDE RECORDS SUMMARY | 2024-08-31 15:27 | XMS_ITS | Patient Health Record ---
Author Organization [facility] Address [address] [place] [address] Care Team Providers Care Pediatric Speech Language Pathologist Name Role Phone ALFONSO MARADIAGA Primary Care Provider Wong Tabor [phone] Allergies Allergen (clinical drug ingredient) Drug/Non Drug Allergy documented on EMR Reaction Allergy Type Onset Date Status lorazepam Ativan Unknown Drug Allergy Active Reason For Referral No Information Medications Medication SIG (Take, Route, Frequency, Duration) Notes Start Date End Date Status Finasteride 5 MG TAKE 1 TABLET BY GRISELDA TH EVERY DAY Oral for 30 Active Vitamin D 50 MCG (1999) TAKE 1 TABLET BY MOUTH EVERY DAY*NOT CVD* Oral for 30 Active Atorvastatin Calcium 10 MG 1 tablet Oral ly Once a day Active Metoprolol Succinate ER 25 MG 1 tablet Orally Once a day Active Levoxyl 100 MCG 1 tablet Orally Once a day Active Immunizations Vaccine Route Administration Date Status Comme nts Influenza Unknown 12/26/2018 Administered Social History Alcohol Screen Question Answer Notes Did you have a drink contain ing alcohol in the past year? Yes How often did you have a dri nk containing alcohol in the past year? 2 to 3 times a week (3 points) How many drinks did you have on a typical day when you were drinking in the past year? 1 or 2 drinks (0 point) How often did you have 6 or more drinks on one occasion in the past year? Never (0 point) Points 3 Interpretation Negative Section Notes: Nonsmoker; no sig alcohol Nonsmoker; no sig alcohol ex cept occ. 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 [address] [place] [address] [id number] JAMIE SCHMITT Self - patient is the insured Medical (General) History Medical History History ICD Code Screening colonoscopies 10-11 and 2003 were neg. except for sigmoid diverticulosis and internal hemorrhoids Melanoma on hois back 1997 Hypothyroidism Denies [place],DM,CVA,Lung disease,renal dise ase Hyperlipidemia HTN BPH-neg. prostate biopsy Elevated Total Bilirubin Surgical History Surgery Date(Month/Year) melanoma removed from his back 1997 Benign cyst on neck 2018
--- OUTSIDE RECORDS SUMMARY | 2024-08-31 15:27 | XMS_ITS | Clinical Summary ---
Author Organization [facility] Address [address] [address] Phone Care Team Providers Care Contour Stitcher Name Role Phone Efra Malik DONAVAN Primary Care Provider [phone] Allergies Active Allergy Reactions Criticality Noted Date Comments Lorazepam 06/25/2022 Medications atorvastatin (LIPITOR) 10 MG tablet Take 10 mg by mouth 1 (one) time each day Active Cholecalciferol 50 MCG (1999) capsule Take by mouth Active finasteride (PROSCAR) 5 MG tablet Take 5 mg by mouth 1 (one) time each day Do not crush, chew, or split. Active levothyroxine sodium (TIROSINT) 100 MCG capsule Take 100 mcg by mouth 1 (one) time each day Active metoprolol succinate XL (TOPROL XL) 25 MG 24 hr tablet Take 25 mg by mouth 1 (one) time each day Do not crush or chew. Active LOSARTAN POTASSIUM PO Take 25 mg by mouth Active amLODIPine (NORVASC) 2.5 MG tablet TAKE 1 TABLET BY MOUTH 1 TIME EACH DAY. 90 tablet 3 01/06/2024 Active Active Problems Problem Noted Date Diagnosed Date Essential (primary) hypertension 06/25/2022 Elevated cholesterol with elevated triglycerides Stage 3a chronic kidney disease Hypertensive chronic kidney disease stage 3 Encounters Date Type Department Care Team Description 07/15/2024 Orders Only [facility] [address] [place] [address] John Coto MD Stage 3a chronic kidney disease (HCC); Hypertensive chronic kidney disease stage 3 from Last 3 Months Family History Medical History Relation Comments Colon cancer Father COPD Mother Relation Status Comments Father Father's Sister Alive Mother Social History Tobacco Use Types Packs/Day Years Used Date Smoking Tobacco: Never Smokeless Tobacco: Never Tobacco Cessation:Counseling Given: Not Answered Alcohol Use Standard Drinks/Week Comments Never 0 (1 standard drink = 0.6 oz pur e alcohol) Sex and Gender Information Value Date Recorded Sex Assigned at Not on file Legal Sex Male 9:25 AM EST Gender Identity Not on file Sexual Orientation Straight 12/30/2022 5: 25 PM EST Last Filed Vital Signs Vital Sign Reading Time Taken Comments Blood Pressure 119/80 01/02/2024 2:48 PM EST Pulse 65 01/02/2024 2:48 PM EST Temperature - - Respiratory Rate - - Oxygen Saturation - - Inhaled Oxygen Concentration - - Weight 80.3 kg (177 lb) 01/02/2024 2:48 PM EST Height - - Body Mass Index - - Plan of Treatment Upcoming Encounters Date Type Department Care Team (Late st Contact Info) Description 09/10/2024 3:00 PM EDT Office Visit [facility] [address] [place] [id number] John Coto MD [address] [address] Health Maintenance Due Date Last Done Comments Pneumococcal Vaccine: 50+ Ye ars (1 of 2 - PCV) 1972 Colorectal Cancer Screening: Annual FOBT 2002 Colorectal Cancer Screening: Colonoscopy 2002 Colorectal Cancer Screening: Sigmoidoscopy 2002 Influenza Vaccine (Season Ended) 2024 Hepatitis B Vaccine Aged Out No longe r eligible based on patient's age to complete this topic Insurance [facility] Care Teams Contour Stitcher Relationship Specialty Start Date End Date Efra Malik NP [address] [place] [address] PCP - General Nurse Practitioner 03/28/22
[2024-08-31 18:12] LABS: Anion Gap 14 (12-20); Blood Urea Nitrogen 21 mg/dL (9-16); Calcium 9.0 mg/dL (8.4-10.2); Carbon Dioxide 20 mmol/L (22-29); Chloride 112 mmol/L (96-108); Estimated Glomerular Filt Rate 44; Potassium 4.2 mmol/L (3.3-5.1); Sodium 142 mmol/L (135-145)
[2024-08-31 18:26] LABS: Protein/Creatinine Ratio, Ur 0.05 (<0.2); Total Protein Urine Random 15 mg/dL (<12)
[2024-08-31 18:31] LABS: Parathyroid Hormone Intact 200.2 pg/mL (8.7-77.1)
== END 2024-08-31 15:00 | disposition home or self-care (01) ==
LOC: HO.WFDLDS 14:59
PROVIDERS: Visit Provider Internal Medicine Nephrology
DX: N18.31 Chronic kidney disease, stage 3a (principal); I12.9 Hypertensive chronic kidney disease with stage 1 through stage 4 chronic kidney disease, or unspecified chronic kidney disease
CPT/HCPCS: 36415; 80051; 82306; 82310; 82565; 82570; 83970; 84156; 84520

== ENCOUNTER 2024-10-28 09:02 | Outpatient (AMB) | payer MEDICARE, SELFPAY ==
--- NOTE | 2024-10-28 09:08 | MHC.PC.OV ---
Vital Signs 10/28/24 09:09 Height 5 ft 7 in Weight 172 lb BMI 26.9 BP 110/68 Blood Pressure Location Lt brachial Position Sitting Respiration 16 Pulse 53 Pulse Source Pulse Oximeter Temp 98.1 F Temp Source Oral Pulse Oximetry (%) 98 Oxygen Delivery Method Room Air Intake Visit Reasons: PE Utility System Operator Required: No Accompanied by: Self / Same As Patient Allergies lorazepam (LORAZEPAM) Allergy (Mild, Verified 10/28/24 09:45) TURNS PINK Medication List - Last Reconciled 10/28/24 by ROB Martínez- amlodipine 2.5 mg PO DAILY aspirin (Adult Low Dose Aspirin) 81 mg PO DAILY atorvastatin 10 mg PO QPM calcitriol 0.25 mcg PO Q OTHER DAY finasteride 5 mg PO DAILY 90 days levothyroxine 100 mcg PO QAM losartan 25 mg PO DAILY metoprolol succinate ER 25 mg PO DAILY Tobacco use date assessed: 10/28/24 Fall risk assessment: No Falls in past year Last assessed Fall Risk: 10/28/24 Dental Screening Dental Screen Date: 10/28/24 Did you have a dental visit in the last 12 months?: Yes Did you have a dental problem in the last 6 months where you did not have access to dental care?: No Was dental information given to patient?: Patient has dentist HPI PE HPI Details History of Present Illness The patient is a 69-year-old male presenting for a routine wellness visit and preventative care. He reports feeling well without any chest pain, dyspnea, abdominal pain, or changes in bowel habits such as constipation or diarrhea. He denies any suicidal ideation or homicidal thoughts. The patient is scheduled for a colon cancer screening in November and regularly sees a urologist for PSA monitoring. He also has regular nephrology appointments. He maintains an active lifestyle, engaging in frequent walking, and reports no significant health issues. Health Maintenance - Colon cancer screening scheduled for November - Regular urology follow-up for PSA monitoring - Regular nephrology follow-up Social History - Exercise: Engages in frequent walking, indicating a high level of physical activity Review of Systems - Cardiovascular: Denies chest pain - Respiratory: Denies dyspnea - Gastrointestinal: Denies abdominal pain, constipation, diarrhea - Psychiatric: Denies suicidal ideation, homicidal thoughts Physical Exam General: Cooperative, healthy appearing, comfortable, no acute distress and well developed Orientation: Patient oriented x3 Limitations: No limitations Head: Normal to inspection Ears: Hearing grossly normal bilaterally Nose: Normal external nose present Face and sinus: Normal facial exam Eyes: Appearance normal, both eyes and all related structures Neck: Normal visual inspection and Yes full ROM Respiratory: Normal respiratory effort and able to speak in complete sentences. Clear to auscultation bilaterally Cardiovascular: Regular rate and rhythm. Normal S1 and S2. No carotid bruits GI: Normal to inspection. Soft to palpation and nontender : Testicles without masses/lesions and no hernias appreciated Skin: No rashes or lesions noted Neuro: Patient oriented x3 Extremities: Normal to inspection Results Discussion Notes I discussed with the patient the importance of continuing regular screenings and follow-ups with his specialists, including the upcoming colon cancer screening and ongoing PSA monitoring. We also reviewed his active lifestyle and encouraged him to maintain his current level of physical activity. Patient Instructions - Continue with scheduled colon cancer screening in November. - Maintain regular follow-ups with urology and nephrology. - Keep up with regular physical activity, such as walking. [facility] Medical History Atrial septal aneurysm Other specified cataract (~03/20/22) Prostate enlargement (~03/14/19) COVID-19 Elevated cholesterol Hypothyroid Hemorrhoids, thrombosed Elevated PSA Laurel disease HTN (hypertension) Surgical History Hx of removal of cyst History of tonsillectomy and adenoidectomy History of melanoma History of colonoscopy Family History Father Colon cancer Mother COPD (chronic obstructive pulmonary disease) Brother No problems noted. Maternal Grandfather No problems noted. Maternal Grandmother No problems noted. Maternal Aunt No problems noted. Maternal Uncle No problems noted. Paternal Aunt No problems noted. Paternal Grandfather No problems noted. Paternal Grandmother No problems noted. Paternal Uncle No problems noted. Social History Household Members: [facility] Patient Tobacco Use Status: Never used Tobacco e-Cigarette/Vaping Use: Never Used Second Hand Smoke Exposure: No service: No Current occupational status: employed Current occupation: atty Current occupational exposures/hazards: No Cognitive needs: No Hearing needs: No Vision needs: Yes Questionnaire PHQ-9 Over the last 2 weeks, how often have you been bothered by any of the following problems? 1. Little interest or pleasure in doing things: not at all 2. Feeling down, depressed, or hopeless: not at all 3. Trouble falling or staying asleep, or sleeping too much: not at all 4. Feeling tired or having little energy: not at all 5. Poor appetite or overeating: not at all 6. Feeling bad about yourself - or that you are a failure or have let yourself or your family down: not at all 7. Trouble concentrating on things, such as reading the newspaper or watching television: not at all 8. Moving or speaking so slowly that other people could have noticed. Or the opposite - being so fidgety or restless that you have been moving around a lot more than usual: not at all 9. Thoughts that you would be better off or of hurting yourself in some way: not at all Total score: 0 Depression Screening Interpretation: Negative Depression Screening Done: Yes 16207 - PHQ-9 Billing: Yes Source: Developed by Drs. Wong Suárez, Ashley Lake, Robert Plascencia and colleagues, with an educational linda from [employer]. Thrive Questionnaire Date Thrive assessed: 10/21/24 I am a: Patient What is your living situation today?: I have a steady place to live Within the past 12 months, did the food you bought not last and you didn't have the money to get more?: Never true Within the past 12 months, did you worry whether your food would run out before you got money to buy more?: Never true Do you have trouble paying for medicines?: No Do you have trouble getting transportation to medical appointments?: No Do you have trouble paying your heating and electricity bill?: No Do you have trouble taking care of your child, family member or friend?: No Do you have trouble with day-to-day activities such as bathing, preparing meals, shopping, managing finances, etc.?: No Are you currently unemployed and looking for a job?: No Are you interested in more education?: No Please select the resources that you would like help with: None Currently or been in a relationship where the following occur: No concerns reported THRIVE Score: 0 AUDIT C Alcohol Use Questionnaire (AUDIT-C) 1. How often do you have a drink containing alcohol?: Monthly or less 2. How many drinks containing alcohol do you have on a typical day when you are drinking?: 1 or 2 3. How often do you have six or more drinks on one occasion?: Never Total Score: 1 Score Reviewed/Action Taken: Yes TINA-7 AMB Questionnaire TINA-7 Date TINA - 7 assessed: 10/28/24 Feeling nervous, anxious, or on edge: 0 = Not at all Not being able to stop or control worryin = Not at all Worrying too much about different things: 0 = Not at all Trouble relaxin = Not at all Being so restless that it is hard to sit still: 0 = Not at all Becoming easily annoyed or irritable: 0 = Not at all Feeling afraid as if something awful might happen: 0 = Not at all Total TINA-7 score (0-4 normal; 5-9 mild; 10-14 moderate; 15-21 severe): 0 Source: Developed by Drs. Wong Suárez, Ashley Lake, Robert Plascencia and colleagues, with an educational linda from [employer]. TINA-7 Assessment Billing TINA-7 Assessment Tool: TINA-7 Assessment 66074 Physical exam (Primary Care) Vital Signs: Last Vital Signs Temp 98.1 F 10/28/24 09:09 Pulse 53 10/28/24 09:09 Resp 16 10/28/24 09:09 BP 110/68 10/28/24 09:09 Pulse Ox 98 10/28/24 09:09 Oxygen Delivery Method Room Air 10/28/24 09:09 BMI result Body Mass Index 26.9 Tobacco/Smoking Status: Tobacco use Status Tobacco use date assessed 10/28/24 10/28/24 09:16 Patient Tobacco Use Status Never used Tobacco 10/28/24 09:16 e-Cigarette/Vaping Use Never Used 10/28/24 09:16 PHQ-9: PHQ-9 Score PHQ-9: Total score 0 10/28/24 09:16 Depression Screening Interpretation: Negative Thrive Assessment: Date of Thrive Assessment Date Thrive assessed 10/21/24 10/28/24 09:16 Currently or been in a relationship where the following occur: No concerns reported Coding Level of Care Code Est Pt Prev Care >65y(70997) Diagnoses Physical exam Z00. Additional Codes TINA-7 Assessment Billing - TINA-7 Assessment Tool: TINA-7 Assessment 19969 ([id number]) PHQ-9 - 03882 - PHQ-9 Billing: Yes ([id number]) Assessment & Plan Assessment & Plan (1) Physical exam: Code(s): Z00.00 - Encounter for general adult medical examination without abnormal findings Category: Medical Plan . Orders: Orders Complete Blood Count Auto Diff Today Z00.00 - Encounter for general adult medical examination without abnormal findings Comprehensive [place]. Panel Fast Today Z00.00 - Encounter for general adult medical examination without abnormal findings TSH reflex Free T4 Today Z00.00 - Encounter for general adult medical examination without abnormal findings UA CC w/rflx Micro + Cult Today Z00.00 - Encounter for general adult medical examination without abnormal findings Vitamin D 25-OH Total Today Z00.00 - Encounter for general adult medical examination without abnormal findings Lipid Panel Today Z00.00 - Encounter for general adult medical examination without abnormal findings
[2024-10-28 09:09] VITALS: BP 110/68; PULSE 53; RESP 16; TEMP 36.7; O2SAT 98; BMI 26.9
--- OUTSIDE RECORDS SUMMARY | 2024-10-28 09:42 | XMS_ITS | Patient Health Record ---
Author Organization [facility] Address [address] [place] [address] Care Team Providers Care Business Management Associate Name Role Phone ALFONSO MARADIAGA Primary Care Provider Wong Tabor [phone] Allergies Allergen (clinical drug ingredient) Drug/Non Drug Allergy documented on EMR Reaction Allergy Type Onset Date Status lorazepam Ativan Unknown Drug Allergy Active Reason For Referral No Information Medications Medication SIG (Take, Route, Frequency, Duration) Notes Start Date End Date Status Atorvastatin Calcium 10 MG 1 tablet Oral ly Once a day Active Losartan Potassium 25 MG 1 tablet Orally Once a day Active amLODIPine Besylate 2.5 MG 1 tablet Oral ly Once a day Active Levothyroxine Sodium 100 MCG 1 tablet in the morning on an empty stomach Orally Once a day Active Vitamin D 50 MCG (1999) TAKE 1 TABLET BY MOUTH EVERY DAY*NOT CVD* Oral for 30 Active Finasteride 5 MG TAKE 1 TABLET BY EVERY DAY Oral for 30 Active Metoprolol Succinate ER 25 MG 1 tablet Orally Once a day Active Immunizations Vaccine Route Administration Date Status Comme nts Influenza Unknown 12/26/2018 Administered Influenza Unknown 12/17/2023 Administered Social History Alcohol Screen Question Answer [...] alcohol ex cept occ. wine with dinner Nonsmoker; no sig alcohol ex cept occ. 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) Active confirmed Vital Signs Temperature 97.4 degrees Fahrenheit 09/08/2024 Blood pressure diastolic 01 mm Hg 09/08/2024 Height 67 in 09/08/2024 Blood pressure systolic 001 mm Hg 09/08/2024 Weight 173.6 lbs 09/08/2024 BMI 27.19 kg/m2 09/08/2024 Procedures Procedure Date Ordered Date Performed Result Body Sit e COLONOSCOPY 09/08/2024 N/A Encounters Encounter Location Date Provider Diagnosis [facility] [address] [place] [phone] 09/08/2024 Wong Salgado History of adenomato us polyp of colon Z86.010 ; Preprocedural examination Z01.818 ; Encounter for screening for malignant neoplasm of colon Z12.11 ; Gilbert's disease E80.4 and Serrated polyp of colon K63.5 [facility] [address] [place] [phone] 08/06/2024 Wong Salgado Assessments Encounter Date Diagnosis (ICD Code) Assessment Notes Treatment Notes Treatment Clinical Notes Section Notes 09/08/2024 History of adenomatous polyp of colon (ICD-10 - Z86.010) Overall, Jamie appears quite well. Given his age, good clinical appearance, his last colonoscopy being over 5 years ago and his family history of colon cancer, I did recommend a follow-up colonoscopy for further screening purposes. We did review the rationale for this in regard to colon cancer prevention. The procedure will be done with monitored anesthesia care. Full consent has been obtained from him for this, including risks of bleeding and perforation. Jamie was comfortable with this plan. Thank you again for allowing me to participate in Jamie's care. I shall continue to keep you advised of his progress. 09/08/2024 Preprocedural examination (ICD-10 - Z01.818) Overall, Jamie appears quite well. Given his age, good clinical appearance, his last colonoscopy being over 5 years ago and his family history of colon cancer, I did recommend a follow-up colonoscopy for further screening purposes. We did review the rationale for this in regard to colon cancer prevention. The procedure will be done with monitored anesthesia care. Full consent has been obtained from him for this, including risks of bleeding and perforation. Jamie was comfortable with this plan. Thank you again for allowing me to participate in Jamie's care. I shall continue to keep you advised of his progress. 09/08/2024 Encounter for screening for malignant neoplasm of colon (ICD-10 - Z12.11) Overall, Jamie appears quite well. Given his age, good clinical appearance, his last colonoscopy being over 5 years ago and his family history of colon cancer, I did recommend a follow-up colonoscopy for further screening purposes. We did review the rationale for this in regard to colon cancer prevention. The procedure will be done with monitored anesthesia care. Full consent has been obtained from him for this, including risks of bleeding and perforation. Jamie was comfortable with this plan. Thank you again for allowing me to participate in Jamie's care. I shall continue to keep you advised of his progress. 09/08/2024 Gilbert's disease (ICD-10 - E80.4) Overall, Jamie appears quite well. Given his age, good clinical appearance, his last colonoscopy being over 5 years ago and his family history of colon cancer, I did recommend a follow-up colonoscopy for further screening purposes. We did review the rationale for this in regard to colon cancer prevention. The procedure will be done with monitored anesthesia care. Full consent has been obtained from him for this, including risks of bleeding and perforation. Jamie was comfortable with this plan. Thank you again for allowing me to participate in Jamie's care. I shall continue to keep you advised of his progress. 09/08/2024 Serrated polyp of colon (ICD-10 - K63.5) Overall, Jamie appears quite well. Given his age, good clinical appearance, his last colonoscopy being over 5 years ago and his family history of colon cancer, I did recommend a follow-up colonoscopy for further screening purposes. We did review the rationale for this in regard to colon cancer prevention. The procedure will be done with monitored anesthesia care. Full consent has been obtained from him for this, including risks of bleeding and perforation. Jamie was comfortable with this plan. Thank you again for allowing me to participate in Jamie's care. I shall continue to keep you advised of his progress. Plan Of Treatment Pending Test Test Name Order Date COLONOSCOPY 09/08/2024 Future Test Test Name Order Date COLONOSCOPY 09/21/2014 COLONOSCOPY 05/19/2019 Next Appt Details Provider Name:Wong Salgado , 12/02/2024 08:30:00 AM, [address] [place] [address] , [place], [place], [phone], Insurance Providers Payer Name Payer Address Payer Phone Subscriber Number Group Number Insured Name Patient Relationship to Insured Coverage Start Date Coverage End Date [facility] [address] [place] [address] [id number] OSKARJAMIE Hansen Self - patient is the insured 1 Medical (General) History Medical History History ICD Code Screening colonoscopies 10-11 and 2003 were neg. except for sigmoid diverticulosis and internal hemorrhoids Melanoma on his back 1997 Hypothyroidism Denies PR,DM,CVA,Lung disease,renal dise ase Hyperlipidemia HTN BPH-neg. prostate biopsy Gilbert's disease documented elevated un conjugated bilirubins Colonoscopy 2014 with a small tubular ad enoma removed Colonoscopy in June 2019 with removal of a small sessile serrated polyp from the ileocecal valve Surgical History Surgery Date(Month/Year) Benign cyst on neck 2018 melanoma removed from his back 1997
--- OUTSIDE RECORDS SUMMARY | 2024-10-28 09:42 | XMS_ITS | Clinical Summary ---
Author Organization [facility] Address [address] [address] Phone Care Team Providers Care Planning Associate Name Role Phone Rociofred Efra GO Primary Care Provider [phone] Allergies Active Allergy Reactions Criticality Noted Date Comments Lorazepam 06/25/2022 Medications atorvastatin (LIPITOR) 10 MG tablet Take 10 mg by mouth 1 (one) time each day Active finasteride (PROSCAR) 5 MG tablet Take [...] EACH DAY. 90 tablet 3 01/06/2024 Active calcitriol (Rocaltrol) 0.25 MCG capsule Take 1 capsule (0.25 mcg total) by mouth every other day 45 capsule 3 09/10/2024 Active Active Problems Problem Noted Date Diagnosed Date Secondary hyperparathyroidism of renal origin Essential (primary) hypertension 06/25/2022 Elevated cholesterol with elevated triglycerides Stage 3a chronic kidney disease Hypertensive chronic kidney disease stage 3 Encounters Date Type Department Care Team Description 09/10/2024 3:00 PM EDT Office Visit [facility] [address] [place] [phone] John Coto MD Stage 3a chronic kidney disease (HCC) (Primary Dx); Hypertensive chronic kidney disease stage 3; Secondary hyperparathyroidism of renal origin (HCC) from Last 3 Months Family History Medical [...] Sign Reading Time Taken Comments Blood Pressure 131/82 09/10/2024 2:53 PM EDT Pulse 63 09/10/2024 2:53 PM EDT Temperature - - Respiratory Rate - - Oxygen Saturation - - Inhaled Oxygen Concentration - - Weight 81.6 kg (180 lb) 09/10/2024 2:53 PM EDT Height - - Body Mass Index - - Plan of Treatment Upcoming Encounters Date Type Department Care Team (Late st Contact Info) Description 06/17/2025 3:00 PM EDT [facility] [address] [phone] [place] [address] [place] [phone] Health Maintenance Due Date Last Done Comments Pneumococcal Vaccine: 50+ Ye ars (1 of 2 - PCV) 1972 Colorectal Cancer Screening: Annual FOBT 2002 Colorectal Cancer Screening: Sigmoidoscopy 2002 Influenza Vaccine (#1) 2024 Colorectal Cancer Screening: Colonoscopy 09/08/2034 09/08/2024 Hepatitis B Vaccine Aged Out No longe r eligible based on patient's age to complete this topic Procedures Procedure Name Priority Date/Time Associated Diagnosis Comments PROTEIN / CREATININE RATIO, URINE Routine 08/31/2024 5:50 PM EDT Stage 3a chronic kidney disease (HCC) Hypertensive chronic kidney disease stage 3 PTH, INTACT (HC) Routine 08/31/2024 5:47 PM EDT CALCIUM Routine 08/31/2024 5:47 PM EDT CREATININE, BLOOD Routine 08/31/2024 5:4 7 PM EDT BUN Routine 08/31/2024 5:47 PM EDT ELECTROLYTE PANEL Routine 08/31/2024 5:4 7 PM EDT VITAMIN D 25 HYDROXY Routine 08/31/2024 5:47 PM EDT Stage 3a chronic kidney disease (HCC) Hypertensive chronic kidney disease stage 3 from Last 3 Months Results * (ABNORMAL) Urine Protein / creatinine ratio (08/31/2024 5:50 PM EDT) Creatinine, Urine 297.44 mg/dL See order comments Protein Urine Random 15(H) <12 mg/dL See order comments Protein/Creati nine Ratio, Urine 0.05 <0.2 See order comments Comment: The spot urine protein:creatinine ratio may increase to 0.3 during normal . Urine specimen (specimen) Urine specimen obtained by clean catch procedure / Unknown 08/31/2024 5:50 PM EDT 08/31/2024 5:50 PM EDT us John Coto MD LAB URINE ORDERABLES Final Resu lt [place] See order comments [place] [address] * (ABNORMAL) Creatinine (08/31/2024 5:47 PM EDT) Creatinine Serum 1.58(H) 0.5 - 1.4 mg/dL See order comments eGFR (Calc) 44 See orde r comments Comment: Chronic Kidney Disease: Estimated GFR < 60 mL/min/1.73m2 Severe Kidney Disease: Estimated GFR < 15 mL/min/1.73m2 08/31/2024 5:47 PM EDT 08/31/2024 5:47 PM EDT us John Coto MD LAB BLOOD ORDERABLES [facility] See order comments [place] [address] * (ABNORMAL) PTH, Intact (08/31/2024 5:47 PM EDT) Parathyroid Hormone, Intact 200.2(H) 8.7 - 77.1 pg/mL See order comments 08/31/2024 5:47 PM EDT 08/31/2024 5:47 PM EDT us John Coto MD LAB [id number] LICITED RESULTS Final Result Performing Organization Address [facility] Co de Phone Number [place] See order comments [place] [address] * Vitamin D 25 hydroxy (08/31/2024 5:47 PM EDT) Vitamin D, 25-Hydroxy 61.3 >30 ng/mL See order comments Comment: Health Based Reference Values* < 20 ng/mL Deficient 20-30 ng/mL Insufficient > 30 ng/mL Sufficient *Chaim COOLEY. N Engl J Med. 2007;357:266-280 There is no well-established upper level of normal vitamin D levels. Some laboratories use 50 ng/mL as an upper limit of normal. However, toxicity is patient-dependent and may occur at any level. Careful correlation with the patient's presentation is necessary and, if there is concern for vitamin D toxicity, treatment should be considered irrespective of the serum level. Care must be taken in interpreting Vitamin D results from different laboratories and methodologies. Published data demonstrated that results from patients undergoing hemodialysis may show a negative bias when tested with various automated 25-OH vitamin D assays when compared to LC-MS/MS. When testing samples from patients whose predominant form of Vitamin D is Vitamin D2, such as patients receiving Vitamin D2 supplementation, results that are subtherapeutic should be confirmed with another method such as LC-MS/MS. Blood specimen (specimen) Venous blood / Unknown 08/31/2024 5:47 PM EDT 08/31/2024 5:47 PM EDT us John Coto MD LAB BLOOD ORDERABLES Final Resu lt Performing Organization Address [facility] Phone Number [place] See order comments [place] [address] * (ABNORMAL) BUN (08/31/2024 5:47 PM EDT) BUN 21(H) 9 - 16 mg/dL See order comments 08/31/2024 5:47 PM EDT 08/31/2024 5:47 PM EDT us John Coto MD LAB BLOOD ORDERABLES Final Resu lt Performing Organization Address [facility] Phone Number [place] See order comments [place] [address] * Calcium (08/31/2024 5:47 PM EDT) Calcium 9.0 8.4 - 10.2 mg/dL See order comments 08/31/2024 5:47 PM EDT 08/31/2024 5:47 PM EDT us John Coto MD LAB BLOOD ORDERABLES Final Resu lt Performing Organization Address [facility] Phone Number [place] See order comments [place] [address] * (ABNORMAL) Electrolyte panel (08/31/2024 5:47 PM EDT) Sodium 142 135 - 145 mmol/L See order comments Potassium 4.2 3.3 - 5.1 mmol/L See order comments Chloride 112(H) 96 - 108 mmol/L See order comments Bicarbonate (CO2) 20(L) 22 - 29 mmol/L See order comments Anion Gap 14 12 - 20 See order comments 08/31/2024 5:47 PM EDT 08/31/2024 5:47 PM EDT us John Coto MD LAB BLOOD ORDERABLES Final Resu lt [place] See order comments [place] [address] from Last 3 Months Insurance [facility] Care Teams Planning Associate Relationship Specialty Start Date End Date Efra Malik NP 1963 [place], [place] PCP - General Nurse Practitioner 03/28/22
--- OUTSIDE RECORDS SUMMARY | 2024-10-28 09:43 | XMS_ITS | Encounter Summary ---
Author Organization [facility] Address [address] [place] [address] Phone Care Team Providers Care Senior Product Analyst Name Role Phone Efra Malik DONAVAN Primary Care Provider Encounter Details Date Type Department Care Team (Late st Contact Info) Description 06/25/2022 Telephone [facility] [address] [place] [address] Deanna Prather MA Social History Tobacco Use Types Packs/Day Years Used Date Smoking Tobacco: Never Smokeless Tobacco: Never Alcohol Use Standard Drinks/Week Comments Never 0 (1 standard drink = 0.6 oz pur e alcohol) Sex and Gender Information Value Date Recorded Sex Assigned at Not on file Legal Sex Male 9:25 AM EST Gender Identity Not on file Sexual Orientation Straight 12/30/2022 5: 25 PM EST documented as of this encounter Miscellaneous Notes * Telephone Encounter - Deanna Prather MA - 06/25/2022 4:55 PM EDT Pt called he forgot to tell you he is also taking IC Losartan Potassium 25 mg, 1 tab daily. documented in this encounter Plan of Treatment Upcoming Encounters Date Type Department Care Team (Late st Contact Info) Description 06/17/2025 3:00 PM EDT [facility] Visit [facility] [place] [address] [place] [address] John Coto MD [address] [phone] documented as of this encounter Visit Diagnoses Not on filedocumented in this encounter Care Teams Senior Product Analyst Relationship Specialty Start Date End Date Efra Malik NP [facility] [place] [address] PCP - General Nurse Practitioner 03/28/22 documented as of this encounter
== END 2024-10-28 09:45 | disposition home or self-care (01) ==
LOC: HO.HMCC 09:02
PROVIDERS: PCP Nurse Practitioner Family; Visit Provider Nurse Practitioner Family
DX: Z00.00 Encounter for general adult medical examination without abnormal findings (principal)

== ENCOUNTER → 2024-10-28 09:02 | Outpatient (BNVA) | payer MEDICARE, SELFPAY | PROVIDERS: PCP Nurse Practitioner Family; Visit Provider Nurse Practitioner Family | DX: Z00.00 Encounter for general adult medical examination without abnormal findings (principal) | CPT/HCPCS: 96127; 99397 ==

== ENCOUNTER 2024-11-23 06:03 | Outpatient (REF) | payer MEDICARE, SELFPAY ==
--- OUTSIDE RECORDS SUMMARY | 2024-11-23 06:05 | XMS_ITS | Clinical Summary ---
Author Organization [facility] Address [address] [address] Phone Care Team Providers Care Animal Husbandry Professor Name Role Phone Rociofred Efra GO Primary Care Provider [phone] Allergies Active Allergy Reactions Criticality Noted Date [...] Office Visit [facility] [address] [place] [phone] John Coto MD Stage 3a chronic kidney [...] Office Visit [facility] [address] [phone] [place] [address] [place] [phone] Health Maintenance Due Date Last Done Comments [...] order comments [place] [address] * (ABNORMAL) Creatinine (08/31/2024 5:47 PM EDT) Creatinine Serum 1.58(H) 0.5 - 1.4 mg/dL See order comments eGFR (Calc) 44 See orde r comments Comment: Chronic Kidney Disease: Estimated GFR < 60 mL/min/1.73m2 Severe Kidney Disease: Estimated GFR < 15 mL/min/1.73m2 08/31/2024 5:47 PM EDT 08/31/2024 5:47 PM EDT us John Coto MD LAB BLOOD ORDERABLES Final [facility] See order comments [place] [address] * (ABNORMAL) PTH, Intact (08/31/2024 5:47 PM EDT) Parathyroid Hormone, Intact 200.2(H) 8.7 - 77.1 pg/mL See order comments 08/31/2024 5:47 PM EDT 08/31/2024 5:47 PM EDT us John Coto MD LAB [id number] LICITED RESULTS Final Result Performing Organization Address [facility] Co de Phone Number SHANE See order comments [place] [address] * Vitamin D 25 hydroxy (08/31/2024 5:47 [...] ORDERABLES Final Resu lt Performing Organization Address [facility] Phone Number [place] See order comments [place] [address] * (ABNORMAL) BUN (08/31/2024 5:47 PM EDT) BUN 21(H) 9 - 16 mg/dL See order comments 08/31/2024 5:47 PM EDT 08/31/2024 5:47 PM EDT us John Coto MD LAB BLOOD ORDERABLES Final Resu lt Performing Organization Address [facility] Phone Number [place] See order comments [place] [address] * Calcium (08/31/2024 5:47 PM EDT) Calcium 9.0 8.4 - 10.2 mg/dL See order comments 08/31/2024 5:47 PM EDT 08/31/2024 5:47 PM EDT us John Coto MD LAB BLOOD ORDERABLES Final Resu lt Performing Organization Address [facility] Phone Number [place] See order comments [place] [address] * (ABNORMAL) Electrolyte panel (08/31/2024 5:47 PM [...] order comments [place] [address] from Last 3 Months Insurance [facility] Care Teams Animal Husbandry Professor Relationship Specialty Start Date End Date Efra Malik NP [address] [place], [place] PCP - General Nurse Practitioner 03/28/22
--- OUTSIDE RECORDS SUMMARY | 2024-11-23 06:06 | XMS_ITS | Patient Health Record ---
Author Organization [facility] Address [address] [place] [address] Care Team Providers Care Qa Internship Name Role Phone ALFONSO MARADIAGA Primary Care Provider Wong Tabor [phone] Allergies Allergen (clinical drug ingredient) Drug/Non Drug [...] Problem Status W/U Status Risk Notes Problem 640068390 Encounter for screening for malignant neoplasm of colon (Z12.11) Active confirmed Problem 974750491 History of adenomatous polyp of colon (Z86.010) Active confirmed Problem 146087682336727 Total bilirubin, elevated (R17) Active confirmed Problem 53304991 Gilbert's disease (E80.4) Active confirmed Vital Signs Temperature 97.4 degrees Fahrenheit 09/08/2024 Blood pressure diastolic 01 mm Hg 09/08/2024 Height 67 in 09/08/2024 Blood pressure systolic 001 mm Hg 09/08/2024 Weight 173.6 lbs 09/08/2024 BMI 27.19 kg/m2 09/08/2024 Procedures Procedure Date Ordered Date Performed Result Body Sit e COLONOSCOPY 09/08/2024 N/A Encounters Encounter Location Date Provider Diagnosis [facility] [address] [place] [address] 09/08/2024 Wong Salgado History of adenomato us polyp of colon Z86.010 ; Preprocedural examination Z01.818 ; Encounter for screening for malignant neoplasm of colon Z12.11 ; Gilbert's disease E80.4 and Serrated polyp of colon K63.5 [facility] [address] [place] [phone] 11/17/2024 Wong Salgado [facility] [address] [place] [phone] 08/06/2024 Wong Salgado Assessments Encounter Date Diagnosis [...] Name Order Date COLONOSCOPY 09/21/2014 COLONOSCOPY 05/19/2019 Insurance Providers Payer Name Payer Address Payer Phone Subscriber Number Group Number Insured Name Patient Relationship to Insured Coverage Start Date Coverage End Date [facility] [address] [place] [address] [id number] [id number] OSKARJAMIE Hansen Self - patient is the insured 1 Medical (General) History Medical History History ICD Code Screening colonoscopies 10-11 and 2003 were neg. except for sigmoid diverticulosis and internal hemorrhoids Melanoma on his back 1997 Hypothyroidism Denies UT,DM,CVA,Lung disease,renal dise ase Hyperlipidemia HTN BPH-neg. prostate biopsy Gilbert's disease documented elevated un conjugated bilirubins Colonoscopy 2014 with a small tubular ad enoma removed Colonoscopy in June 2019 with removal of a small sessile serrated polyp from the ileocecal valve Surgical History Surgery Date(Month/Year) Benign cyst on neck 2018 melanoma removed from his back 1997
--- OUTSIDE RECORDS SUMMARY | 2024-11-23 06:06 | XMS_ITS | Encounter Summary ---
Author Organization [facility] Address [address] [place] [address] Phone Care Team Providers Care Supervisor Malted Milk Name Role Phone Efra Malik DONAVAN Primary Care Provider [phone] Encounter Details Date Type Department Care Team (Late st Contact Info) Description 06/25/2022 Telephone [facility] [address] [place] [address] Deanna Prather [place] Social History [...] Office Visit [facility] [place] [address] [place] [address] John Coto MD [address] [phone] documented as of this encounter Visit Diagnoses Not on filedocumented in this encounter Care Teams Supervisor Malted Milk Relationship Specialty Start Date End Date Efra Malik NP [facility] [place] [address] PCP - General Nurse Practitioner 03/28/22 documented as of this encounter
[2024-11-23 06:22] LABS: MANUAL DIFF FLAG NO
[2024-11-23 07:12] LABS: Hematocrit 43.1 % (42.0-52.0); Hemoglobin 14.3 g/dl (14.0-18.0); Imm Gran Abs Auto 0.01 X10*3/uL (0.00-0.03); Imm Gran Pct Auto 0.3 % (0.0-0.4); Lymphocytes Absolute Auto 2.2 X10*3/uL (1.2-4.9); Mean Corpuscular HGB Conc 33.2 g/dl (31.0-36.0); Mean Corpuscular Hemoglobin 29.3 pg (27.0-33.0); Mean Corpuscular Volume 88.3 fL (80.0-98.0); NRBC Abs Auto 0.000 X10*3/uL (0.0-0.012); NRBC Pct Auto 0.0 /100WBC (0.0-0.2); Platelet Count 223 X10*3/uL (160-400); Red Blood Count 4.88 X10*6/uL (4.60-5.80); White Blood Count 4.0 X10*3/uL (4.8-10.8)
[2024-11-23 07:18] LABS: Appearance Urine Clear; Glucose Urine UA Negative (Negative); PH 5.5 (5.0-9.0); Specific Gravity - Urine 1.020 (1.005-1.025)
[2024-11-23 07:54] LABS: Alanine Aminotransferase 30 U/L (0-40); Albumin Level 4.1 g/dL (3.5-5.0); Alkaline Phosphatase 75 U/L (39-117); Anion Gap 10 (12-20); Aspartate Amino Transferase 26 U/L (5-37); Blood Urea Nitrogen 25 mg/dL (9-16); Calcium 9.5 mg/dL (8.4-10.2); Carbon Dioxide 26 mmol/L (22-29); Chloride 111 mmol/L (96-108); Cholesterol 151 mg/dL (<200); Estimated Glomerular Filt Rate 44; HDL Cholesterol 37 mg/dL (>40); Potassium 4.1 mmol/L (3.3-5.1); Sodium 143 mmol/L (135-145); Total Protein 6.4 g/dL (6.5-8.0); Triglycerides 99 mg/dL (<150)
[2024-11-23 08:00] LABS: Prostate Specific Antigen 3.45 ng/mL (<0.05-4.0)
== END 2024-11-23 06:04 | disposition home or self-care (01) ==
LOC: HO.LAB 06:03
PROVIDERS: Absent Provider Urology; PCP Nurse Practitioner Family; Visit Provider Nurse Practitioner Family
DX: Z00.00 Encounter for general adult medical examination without abnormal findings (principal); R97.20 Elevated prostate specific antigen [PSA]; Z12.5 Encounter for screening for malignant neoplasm of prostate; Z13.29 Encounter for screening for other suspected endocrine disorder; Z13.6 Encounter for screening for cardiovascular disorders
CPT/HCPCS: 36415; 80053; 80061; 81003; 82306; 84153; 84443; 85025

== ENCOUNTER → 2024-12-01 07:57 | Outpatient (REF) | payer MEDICARE, SELFPAY ==
--- NOTE | 2024-12-01 07:58 | CA_ITS ---
Transthoracic Echocardiogram Patient (Last, First, Middle): Pratik Velez E Gender: M Date of : 1955 Age: 69 Procedure Date: 12/01/2024 Procedure Type: Transthoracic Echocardiogram Location: OP Height: 170. cm Weight: 78.47 kg BSA: 1.90 m2 Heart Rate: 51 bpm BP: 115 / 80 mmHg Cemetery Vault Installer: RUBY Referring MD: You Polk MD Hospice Team Lead: Aubrey Varner MD Symptoms: I44.7 - Left bundle-branch block, unspecified Study Quality: Adequate. Limited per order ECG Rhythm: Bradycardia Conclusions: - Normal LV ejection fraction 55-60% Findings Left Ventricle Normal left ventricular size, thickness, and systolic function. The visually estimated ejection fraction is between 55-60%. There is paradoxical septal motion consistent with a left bundle branch block. Spectral Doppler is indicative of an impaired relaxation filling pattern. Pericardium/Pleural There is no evidence of pericardial effusion. Prior Study Comparison Changes noted compared to prior study dated: 03/20/2023. LV ejection fraction in his in normal range Measurements 2D Linear Measurements IVSd: 0.93 0.6-0.9/0.6-1.0 cm LVIDd: 4.54 3.9-5.3/4.2-5.9 cm LVIDd Index: 2.39 2.4-3.2/2.2-3.1 cm/m2 LVIDs: 3.20 2.0-3.6 cm LVPWd: 1.12 0.7-1.1 cm LV Mass: 200.86 67-162/88-224 g LV Mass Index: 105.72 43-95/49-115 g/m2 LVOT Diam: 2.10 3.0+(-)1.3 cm 2D Systolic Function EF 4C: 57.80 >55% EF 2C: 58.30 >55% EF BiP: 58.00 >55% Mitral Valve MV Pk E: 0.58 MV PK A: 0.84 MV Decel Time: 363.00 E/A: 0.70 E'Lateral: 7.61 E'Medial: 6.95 E/E' Med: 8.40 E/E' Lat: 7.70 PHT: 106.00 MVA PHT: 2.08 Decel [place]: 1.61 LVOT LVOT Pk [place]: 1.10 LVOT Mn [place]: 0.66 LVOT VTI: 0.25 LVOT Pk Grad: 5.00 LVOT Mn Grad: 2.00 LVOT Diam: 2.10 LVOT Area: 3.46 Diastolic Function MV Pk E: 0.58 MV Pk A: 0.84 E/A: 0.70 E'Medial: 6.95 E/E' Med: 8.40 E' Laterial: 7.61 E/E' Lat: 7.70 Updated in Other Vendor System with Status of Final Aubrey Varner MD electronically signed on 12/01/2024 1:15:27 PM with status of Final
--- OUTSIDE RECORDS SUMMARY | 2024-12-01 08:03 | XMS_ITS | Patient Health Record ---
Author Organization [facility] Address [address] [place] [address] Care Team Providers Care Wolf Hunter Name Role Phone ALFONSO MARADIAGA Primary Care Provider Wong Tabor [phone] Allergies Allergen (clinical drug ingredient) Drug/Non Drug [...] Problem Status W/U Status Risk Notes Problem 869166121 Encounter for screening for malignant neoplasm of colon (Z12.11) Active confirmed Problem 737452113 History of adenomatous polyp of colon (Z86.010) Active confirmed Problem [id number] Total bilirubin, elevated (R17) Active confirmed Problem 32746110 Gilbert's disease (E80.4) Active confirmed Vital Signs Temperature 97.4 degrees Fahrenheit 09/08/2024 Blood pressure diastolic 01 mm Hg 09/08/2024 Height 67 in 09/08/2024 Blood pressure systolic 001 mm Hg 09/08/2024 Weight 173.6 lbs 09/08/2024 BMI 27.19 kg/m2 09/08/2024 Procedures Procedure Date Ordered Date Performed Result Body Sit e COLONOSCOPY 09/08/2024 N/A Encounters Encounter Location Date Provider Diagnosis [facility] [address] [place] [phone] 09/08/2024 Wong Salgado History of adenomato us polyp of colon Z86.010 ; Preprocedural examination Z01.818 ; Encounter for screening for malignant neoplasm of colon Z12.11 ; Gilbert's disease E80.4 and Serrated polyp of colon K63.5 [facility] [address] [place] [phone] 11/17/2024 Wong Salgado [facility] [address] [place] [phone] 08/06/2024 Wong Salgado Assessments Encounter Date Diagnosis [...] Insured Coverage Start Date Coverage End Date [facility] [address] [place] [address] [id number] [id number] OSKARJAMIE Hansen Self - patient is the insured 1 Medical (General) History Medical History History ICD Code Screening colonoscopies 10-11 and 2003 were neg. except for sigmoid diverticulosis and internal hemorrhoids Melanoma on his back 1997 Hypothyroidism Denies [place],DM,CVA,Lung disease,renal dise ase Hyperlipidemia HTN BPH-neg. prostate biopsy Gilbert's disease documented elevated un conjugated bilirubins Colonoscopy 2014 with a small tubular ad enoma removed Colonoscopy in June 2019 with removal of a small sessile serrated polyp from the ileocecal valve Surgical History Surgery Date(Month/Year) Benign cyst on neck 2018 melanoma removed from his back 1997
--- OUTSIDE RECORDS SUMMARY | 2024-12-01 08:03 | XMS_ITS | Clinical Summary ---
Author Organization [facility] Address [address] [address] Phone Care Team Providers Care Tavern Operator Name Role Phone Rociofred Efra GO Primary Care Provider [phone] Allergies Active Allergy Reactions Criticality Noted Date [...] Office Visit [facility] [address] [place] [phone] John Coto MD Stage 3a chronic kidney [...] Office Visit [facility] [address] [phone] [place] [address] [place] [phone] Health Maintenance Due Date Last Done Comments [...] order comments [place] [address] * (ABNORMAL) Creatinine (08/31/2024 5:47 PM EDT) Creatinine Serum 1.58(H) 0.5 - 1.4 mg/dL See order comments eGFR (Calc) 44 See orde r comments Comment: Chronic Kidney Disease: Estimated GFR < 60 mL/min/1.73m2 Severe Kidney Disease: Estimated GFR < 15 mL/min/1.73m2 08/31/2024 5:47 PM EDT 08/31/2024 5:47 PM EDT us John Coto MD LAB BLOOD ORDERABLES Final Resu lt [facility] See order comments [place] [address] * (ABNORMAL) PTH, Intact (08/31/2024 5:47 PM EDT) Parathyroid Hormone, Intact 200.2(H) 8.7 - 77.1 pg/mL See order comments 08/31/2024 5:47 PM EDT 08/31/2024 5:47 PM EDT us John Coto MD LAB [id number] LICITED RESULTS Final Result Performing Organization Address [facility] Co de Phone Number SHANE See order comments [place] [address] * Vitamin D 25 hydroxy (08/31/2024 5:47 [...] ORDERABLES Final Resu lt Performing Organization Address [facility] Phone Number JONANCY See order comments [place] [address] * (ABNORMAL) BUN (08/31/2024 5:47 PM EDT) BUN 21(H) 9 - 16 mg/dL See order comments 08/31/2024 5:47 PM EDT 08/31/2024 5:47 PM EDT us John Coto MD LAB BLOOD ORDERABLES Final Resu lt Performing Organization Address [facility] Phone Number JONANCY See order comments [place] [address] * Calcium (08/31/2024 5:47 PM EDT) Calcium 9.0 8.4 - 10.2 mg/dL See order comments 08/31/2024 5:47 PM EDT 08/31/2024 5:47 PM EDT us John Coto MD LAB BLOOD ORDERABLES Final Resu lt Performing Organization Address [facility] Phone Number [place] See order comments [place] [address] * (ABNORMAL) Electrolyte panel (08/31/2024 5:47 PM [...] order comments [place] [address] from Last 3 Months Insurance [facility] Care Teams Tavern Operator Relationship Specialty Start Date End Date Efra Malik NP 1963 [place], [place] PCP - General Nurse Practitioner 03/28/22
--- OUTSIDE RECORDS SUMMARY | 2024-12-01 08:03 | XMS_ITS | Encounter Summary ---
Author Organization [facility] Address [address] [place] [address] Phone Care Team Providers Care Legal Recovery Specialist Name Role Phone Efra Malik DONAVAN Primary Care Provider [phone] Encounter Details Date Type Department Care Team (Late st Contact Info) Description 06/25/2022 Telephone [facility] [address] [place] [address] Deanna Prather MA Social History [...] Office Visit [facility] [address] [place] [address] John Coto MD [address] [phone] documented as of this encounter Visit Diagnoses Not on filedocumented in this encounter Care Teams Legal Recovery Specialist Relationship Specialty Start Date End Date Efra Malik NP [employer] [place] [address] PCP - General Nurse Practitioner 03/28/22 documented as of this encounter
== END ==
LOC: HO.CARD 07:57
PROVIDERS: PCP Nurse Practitioner Family; Visit Provider Internal Medicine
DX: I44.7 Left bundle-branch block, unspecified (principal)
CPT/HCPCS: 93308

== ENCOUNTER → 2024-12-01 07:58 | Outpatient (BNV) | payer MEDICARE, SELFPAY | PROVIDERS: PCP Nurse Practitioner Family; Visit Provider Internal Medicine Cardiovascular Disease | DX: I51.89 Other ill-defined heart diseases (principal); I44.7 Left bundle-branch block, unspecified | CPT/HCPCS: 93308; 93321 ==

== ENCOUNTER 2024-12-09 14:07 | Outpatient (AMB) | payer MEDICARE, SELFPAY ==
--- OUTSIDE RECORDS SUMMARY | 2024-12-02 04:30 | XMS_ITS ---
Author Organization [facility] Address [address] [place] [phone] Care Team Providers Care Garment Turner Name Role Phone ALFONSO MARADIAGA Primary Care Provider Wong Tabor [phone] REASON FOR VISIT screening,hx polyps.serrated polyp colon Encounters Encounter Location Date Provider Diagnosis [facility] [address] [place] [phone] 12/02/2024 Wong Salgado Plan Of Treatment No Information Progress Notes * JAMIE SCHMITTDOB:1955 (69 yo M)Acc No.[id number]:12/02/2024 COLON WITH MAC Patient: JAMIE MUNGUIA Provider: Lydia Salgado MD :1955 A ge:69 Y S ex:Male Date:12/02/2024 Address:[address] [place], [place] [id number] Pcp:ALFONSO MARADIAGA Subjective: * Chief Complaints: * 1 . Screening,hx polyps.serrated polyp colon. * Medical History: Objective: * Vitals: Assessment: Plan: * Treatment: * * The named appointment provid er may or may not be the originator of this progress note, and it is not deemed complete until electronically signed by the appointment provider. Sign off status: Pending * Provider: Lydia Salgado MD Date: Generated for Sonjai del/Faesteban/eTransmitting on: 05:52 PM EDT
--- NOTE | 2024-12-09 14:08 | A.OFFVIS_ITS ---
Intake Visit Reasons: PSA FOLLOW UP Intake Note: Patient is Present for Follow Up PSA Urology Medication: Finasteride Antibiotic Allergies: None Blood Thinners: Aspirin Labs done 11/23/24: PSA 3.45 PVR:0 MLS Bi Data Architect Required: No Accompanied by: Self / Same As Patient Allergies lorazepam (LORAZEPAM) Allergy (Mild, Verified 12/09/24 14:08) TURNS PINK HPI Comments Details: Pratik is a pleasant male. He is a patient of Dr. Carver. He is seen for the following urologic conditions - lower urinary tract symptoms - elevated PSA - erectile dysfunction Yearly follow-up Finasteride every other day, PSA slight jump 3.4 Good urinary parameters Following 12 months Erectile dysfunction On demand Cialis 20 mg Elevated PSA/Abnormal JESUS: Current management is GreenLight laser prostatectomy 03/17 and finasteride Laboratory investigations include 12/12 PSA 5.1 03/15 PSA 5.8, 04/15 PSA 7.9, 05/13 PSA 6.9, 07/13 PSA 8.2 35%, 11/13 9.3, 12/13 TRUS negative 65gm, 06/14 7.0, 12/14 7.0 - 04/17 3.7, 11/15 5.2 F 30%, 05/16 2.8, 11/16 1.9, 04/19 2.1, 11/17 2.3, 05/18 2.7, 11/18 2.3, 12/19 3.4 Prostate biopsy 12/13 NAD - BPH Symptoms include 05/13 , straining 06/14 , weak stream, and are stable Imaging - 12/14 renal ultrasound. NAD. PFSH Medical History Atrial septal aneurysm Other specified cataract (~03/20/22) Prostate enlargement (~03/14/19) COVID-19 Elevated cholesterol Hypothyroid Hemorrhoids, thrombosed Elevated PSA [place] disease HTN (hypertension) Surgical History Hx of removal of cyst History of tonsillectomy and adenoidectomy History of melanoma History of colonoscopy Family History Father Colon cancer Mother COPD (chronic obstructive pulmonary disease) Brother No problems noted. Maternal Grandfather No problems noted. Maternal Grandmother No problems noted. Maternal Aunt No problems noted. Maternal Uncle No problems noted. Paternal Aunt No problems noted. Paternal Grandfather No problems noted. Paternal Grandmother No problems noted. Paternal Uncle No problems noted. Social History Household Members: Spouse Housing: [facility] Patient Tobacco Use Status: Never used Tobacco e-Cigarette/Vaping Use: Never Used Second Hand Smoke Exposure: No service: No Current occupational status: employed Current occupation: atty Current occupational exposures/hazards: No Cognitive needs: No Hearing needs: No Vision needs: Yes Review of Systems Const Denies chills and Denies fever(s) Card Reports no additional complaints and Denies syncope Resp Denies cough GI Denies abdominal pain and Denies heartburn Reports as per HPI and Denies change in libido Neuro Denies syncope Psych Denies change in libido Endo Denies change in libido Physical Exam Const General: cooperative, healthy appearing, comfortable and no acute distress Orientation/consciousness: patient oriented x3 HEENT Face and sinus: Yes normal facial exam Mouth: moist mucous membranes Neck Neck: Yes normal visual inspection, Yes full ROM and Yes trachea midline Chest Chest palpation & inspection: normal inspection of the chest Resp Effort & Inspection: normal respiratory effort, able to speak in complete sentences and no respiratory distress GI Inspection: Yes normal to inspection Back/Spine/Pelvis Cervical Spine: normal cervical lordosis Thoracic/Lumbar Spine: thoracic and lumbar spine normal to inspection Skin General skin exam: no rashes or lesions noted Neuro General: patient oriented x3, gait normal, tone normal and moves all extremities Extrem General: Yes normal to inspection and Yes capillary refill normal Office Procedures Post Void Residual Post Residual Void Post Void Residual (PVR): 0 [id number] Void Residual by ultrasound Results AMB Urinalysis, Automated UA Leukoctes 0 Jelani/uL Last Edit by ALLISON Keith on 12/09/24 14:21 UA Nitrite Negative Last Edit by ALLISON Keith on 12/09/24 14:21 UA Urobilinogen 0.2 mg/dL Last Edit by ALLISON Keith on 12/09/24 14:21 UA Protein 0 mg/dL Last Edit by Kely Colon, CCMA on 12/09/24 14:21 UA pH 6.0 Last Edit by Kely Colon, CCMA on 12/09/24 14:21 UA Blood 0 Jose Miguel/uL Last Edit by Kely Colon, CCMA on 12/09/24 14:21 UA Specific [place] 1.020 Last Edit by [facility], [facility] on 12/09/24 14:2 1 UA Ketone Negative Last Edit by Kely Colon, CCMA on 12/09/24 14:21 UA Bilirubin 0 mg/dL Last Edit by Kely Colon, CCMA on 12/09/24 14:21 UA Glucose 0 mg/dL Last Edit by Kely Colon, [facility] on 12/09/24 14:21 Results Reviewed Results Reviewed: Laboratory Last Values Urine pH (Auto) 6.0 12/09/24 14:20 Specific [place] (Auto) 1.020 12/09/24 14:20 Urine Protein (Auto) 0 mg/dL 12/09/24 14:20 Glucose (UA)(Auto) 0 mg/dL 12/09/24 14:20 Urine Ketones (Auto) Negative 12/09/24 14:20 Urine Blood (Auto) 0 Jose Miguel/uL 12/09/24 14:20 Urine Nitrite (Auto) Negative 12/09/24 14:20 Urine Bilirubin (Auto) 0 mg/dL 12/09/24 14:20 Urine Urobilinogen (Auto) 0.2 mg/dL 12/09/24 14:20 Leukocyte Esterase (Auto) 0 Jelani/uL 12/09/24 14:20 Assessment & Plan Assessment & Plan (1) Elevated PSA: Comment: decreasing Code(s): R97.20 - Elevated prostate specific antigen [PSA] Category: Medical (2) BPH loc w urin obs/LUTS: Code(s): N40.1 - Benign prostatic hyperplasia with lower urinary tract symptoms Category: Medical (3) Weak urinary stream: Code(s): R39.12 - Poor urinary stream Category: Medical Plan Twelve month follow-up PSA Orders: Orders Prostate Specific Antigen 12 Months N40.1 - Benign prostatic hyperplasia with lower urinary tract symptoms Patient Instructions: This note is constructed using voice recognition software. While every effort has been made to ensure accuracy operations planner errors may have been included. Imaging studies, laboratory and physical exam results were discussed and reviewed in detail. No major barriers to patient understanding were identified. An opportunity to ask questions regarding the treatment plan was provided. All questions were answered. The patient expressed understanding and agreement with the above treatment plan. The patient is aware they should contact our office by phone for worsening of their current condition or the appearance of new urologic symptoms. Compliance is encouraged with any medications and followup testing that is ordered. It is a privilege to participate in the urologic care of your patient. If you have any questions or concerns regarding treatment for the above conditions, or other urologic issues, please do not hesitate to contact me. The office telephone contact is [phone]. Sincerely, Dr Keven Bowen MD, [facility] - Urology Compassionate Specialist Care for the Genitourinary System Coding Level of Care Code Est Pt Level 4 (98242) Diagnoses Elevated PSA R97.20 BPH loc w urin obs/LUTS N40.1 Weak urinary stream R39.12 CPT Codes Post Residual Void - PVR CPT Code: 41588-[id number] Void Residual by ultrasound ([id number])
--- OUTSIDE RECORDS SUMMARY | 2024-12-09 17:52 | XMS_ITS | Patient Health Record ---
Author Organization [facility] Address [address] [place] [address] Care Team Providers Care Occup Ther Name Role Phone ALFONSO MARADIAGA Primary Care Provider Wong Tabor [phone] Allergies Allergen (clinical drug ingredient) Drug/Non Drug [...] 1 TABLET BY MOUTH EVERY DAY*NOT CVD* Oral; Duration: 30 Active Finasteride 5 MG TAKE 1 TABLET BY EVERY DAY Oral; Duration: 30 Active Metoprolol Succinate ER 25 MG [...] Problem Status W/U Status Risk Notes Problem Screening for malignant neoplasm of colon (963024714) Encounter for screening for malignant neoplasm of colon (Z12.11) Active confirmed Problem History of adenomatous polyp of colon (378883041) History of adenomatous polyp of colon (Z86.010) Active confirmed Problem Elevated total bilirubin (346261849933004 ) Total bilirubin, elevated (R17) Active confirmed Problem Gilbert's disease (89550044) Gilbert's disease (E80.4) Active confirmed Vital Signs Temperature 97.4 degrees Fahrenheit 09/08/2024 Blood pressure diastolic 01 mm Hg 09/08/2024 Height 67 in 09/08/2024 Blood pressure systolic 001 mm Hg 09/08/2024 Weight 173.6 lbs 09/08/2024 BMI 27.19 kg/m2 09/08/2024 Procedures Procedure Date Ordered Date Performed Result Body Sit e COLONOSCOPY 09/08/2024 N/A Encounters Encounter Location Date Provider Diagnosis [facility] [address] [place] [phone] 09/08/2024 Wong Salgado History of adenomato us polyp of colon Z86.010 ; Preprocedural examination Z01.818 ; Encounter for screening for malignant neoplasm of colon Z12.11 ; Gilbert's disease E80.4 and Serrated polyp of colon K63.5 [facility] [address] [place] [phone] 11/17/2024 Wong Salgado [facility] [address] [place] [phone] 08/06/2024 Wong Salgado Assessments Encounter Date Diagnosis [...] Insured Coverage Start Date Coverage End Date [employer] [address] [place] [address] [id number] JAMIE SCHMITT Self - patient is the insured 1 Medical (General) History Medical History History ICD Code Screening colonoscopies 10-11 and 2003 were neg. except for sigmoid diverticulosis and internal hemorrhoids Melanoma on his back 1997 Hypothyroidism Denies VA,DM,CVA,Lung disease,renal dise ase Hyperlipidemia HTN BPH-neg. prostate biopsy Gilbert's disease documented elevated un conjugated bilirubins Colonoscopy 2014 with a small tubular ad enoma removed Colonoscopy in June 2019 with removal of a small sessile serrated polyp from the ileocecal valve Surgical History Surgery Date(Month/Year) Benign cyst on neck 2018 melanoma removed from his back 1997
== END 2024-12-09 15:14 | disposition home or self-care (01) ==
LOC: HO.HUSH 14:08
PROVIDERS: Visit Provider Urology
DX: R97.20 Elevated prostate specific antigen [PSA] (principal); N40.1 Benign prostatic hyperplasia with lower urinary tract symptoms; R39.12 Poor urinary stream
CPT/HCPCS: 99214

== ENCOUNTER → 2024-12-09 14:07 | Outpatient (BNVA) | payer MEDICARE, SELFPAY | PROVIDERS: Visit Provider Urology | DX: R97.20 Elevated prostate specific antigen [PSA] (principal); N40.1 Benign prostatic hyperplasia with lower urinary tract symptoms; N13.8 Other obstructive and reflux uropathy; R39.12 Poor urinary stream | CPT/HCPCS: 51798; 99212 ==

== ENCOUNTER 2025-01-18 13:09 | Outpatient (AMB) | payer MEDICARE, SELFPAY ==
[2025-01-18 13:21] VITALS: BP 118/62; PULSE 68; BMI 26.6
--- NOTE | 2025-01-18 13:21 | A.OFFVIS_ITS ---
Vital Signs 01/18/25 13:21 Height 5 ft 7 in Weight 169 lb 12.095 oz BMI 26.6 BP 118/62 Blood Pressure Location Lt brachial Position Sitting Pulse 68 Pulse Source Monitor Intake Visit Reasons: pre op colonoscopy echo Allergies lorazepam (LORAZEPAM) Allergy (Mild, Verified 12/09/24 14:08) TURNS PINK Medication List - Last Reconciled 01/18/25 by You Polk MD amlodipine 2.5 mg PO DAILY aspirin (Adult Low Dose Aspirin) 81 mg PO DAILY atorvastatin 10 mg PO QPM calcitriol 0.25 mcg PO Q OTHER DAY finasteride 5 mg PO DAILY 90 days levothyroxine 100 mcg PO QAM losartan 25 mg PO DAILY metoprolol succinate ER 25 mg PO DAILY HPI Comments Details: Pratik returns for follow-up. In the past, he was seen regarding left bundle-br anch block. He has had this for more than 20 years now. Used to see Dr. Langford. No known coronary disease, myocardial infarction or any other cardiac issues. He is extremely active with absolutely no limitations. He has never experienced anginal-type concerns or shortness of breath or in fact anything else along those lines. Seems to be on medicines for high blood pressure. [facility] Medical History Atrial septal aneurysm Other specified cataract (~03/20/22) Prostate enlargement (~03/14/19) COVID-19 Elevated cholesterol Hypothyroid Hemorrhoids, thrombosed Elevated PSA [place] disease HTN (hypertension) Surgical History Hx of removal of cyst History of tonsillectomy and adenoidectomy History of melanoma History of colonoscopy Family History Father Colon cancer Mother COPD (chronic obstructive pulmonary disease) Brother No problems noted. Maternal Grandfather No problems noted. Maternal Grandmother No problems noted. Maternal Aunt No problems noted. Maternal Uncle No problems noted. Paternal Aunt No problems noted. Paternal Grandfather No problems noted. Paternal Grandmother No problems noted. Paternal Uncle No problems noted. Social History Household Members: Spouse [facility] Patient Tobacco Use Status: Never used Tobacco e-Cigarette/Vaping Use: Never Used Second Hand Smoke Exposure: No service: No Current occupational status: employed Current occupation: atty Current occupational exposures/hazards: No Cognitive needs: No Hearing needs: No Vision needs: Yes Review of Systems Const Denies weakness ENT Denies dizziness Card Denies chest pain, Denies chest pain with activity, Denies syncope, Denies rapid heart rate, Denies pedal edema, Denies edema, Denies leg edema, Denies ligh theadedness, Denies palpitations, Denies dyspnea, Denies dyspnea on exertion and Denies orthopnea Resp Denies cough, Denies dyspnea and Denies dyspnea on exertion GI Denies hematochezia and Denies change in stool character Musc Denies abnormal gait, Denies muscle cramps, Denies muscle weakness, Denies numbness, Denies radiating pain into limb and Denies tingling Neuro Denies abnormal gait, Denies dizziness, Denies syncope, Denies numbness, Denies tingling and Denies weakness Endo Denies palpitations Physical Exam Vital Signs: Last Vital Signs Pulse 68 01/18/25 13:21 BP 118/62 01/18/25 13:21 BMI result Body Mass Index 26.6 Const General: comfortable and no acute distress Orientation/consciousness: patient oriented x3 HEENT Other: Unremarkable Head: Yes normal to inspection Neck Neck: Yes normal visual inspection Chest Chest palpation & inspection: normal inspection of the chest Resp Auscultation: clear to auscultation bilaterally Cardio Palpation: normal PMI Heart sounds: S1 normal heart sound present, S2 normal heart sound present, no gallops, no murmurs and no rubs GI Palpation (GI): Soft to palpation Back/Spine/Pelvis Other: unremarkable Skin General skin exam: no rashes or lesions noted Neuro General: patient oriented x3 Extrem General: Yes normal to inspection Psych Mental Status: mental status grossly normal Office Procedures EKG Details: EKG with underlying sinus rhythm at 68/Min; left bundle-branch block pattern [id number], Complete Assessment & Plan Assessment & Plan (1) LBBB (left bundle branch block): Code(s): I44.7 - Left bundle-branch block, unspecified Category: Medical Plan: In the most recent echocardiogram, LVEF is 55-60%. Prior to that, 50%. Myocardial perfusion imaging study from 2013 consistent with left bundle-branch block findings. Pathophysiology of left bundle-branch block explained. As it has been chronic for > 2 decades with no symptoms, will hold off any further workup. We also discussed about possibility of complete heart block in the future and associated symptoms. In that case, will need to seek emergency care. He understands. (2) Atrial septal aneurysm: Code(s): I25.3 - Aneurysm of heart Category: Medical Plan: Based on echocardiogram, atrial septal aneurysm/PFO. Continue aspirin. (3) HTN (hypertension): Code(s): I10 - Essential (primary) hypertension Category: Medical Plan: Stable on meds. (4) Preoperative cardiovascular examination: Code(s): Z01.810 - Encounter for preprocedural cardiovascular examination Category: Medical Plan: May proceed with GI workup as planned. Low cardiac risk. Plan Discussion Notes I informed the patient that the purpose of the visit was to provide cardiac clearance for an upcoming colonoscopy. We reviewed the patient's stable chronic conditions, including the long-standing left bundle branch block and patent foramen ovale, and I noted that heart function remains normal. I advised that these conditions are stable and do not pose an increased risk for the scheduled procedure. We agreed on a plan for routine follow-up in two years, which will include a repeat echocardiogram for surveillance. The patient understood and agreed with the plan. Patient was informed and verbally consented to the use of an ambient scribe for clinic note documentation during this visit. Patient Instructions: - You are cleared to have your planned colonoscopy. - Continue taking all your medications as prescribed. - Continue with your daily walks. - We will see you back in our office in two years for a follow-up visit and another heart ultrasound (echocardiogram). - Please call the office if any new problems or symptoms arise before then. Coding Level of Care Code Est Pt Level 4 (16241) Complex visit Add On G2211 Diagnoses LBBB (left bundle branch block) I44.7 Atrial septal aneurysm I25.3 HTN (hypertension) I10 Preoperative cardiovascular examination Z01.810 CPT Codes EKG - CPT: 18776-[id number], Complete ([id number])
== END 2025-01-18 13:39 | disposition home or self-care (01) ==
LOC: HO.HCS 13:10
PROVIDERS: PCP Nurse Practitioner Family; Visit Provider Internal Medicine
DX: I44.7 Left bundle-branch block, unspecified (principal); I25.3 Aneurysm of heart; I10 Essential (primary) hypertension; Z01.810 Encounter for preprocedural cardiovascular examination
CPT/HCPCS: 93010; 99214; G2211

== ENCOUNTER → 2025-01-18 13:09 | Outpatient (BNVA) | payer MEDICARE, SELFPAY | PROVIDERS: PCP Nurse Practitioner Family; Visit Provider Internal Medicine | DX: Z01.810 Encounter for preprocedural cardiovascular examination (principal); I44.7 Left bundle-branch block, unspecified; I25.3 Aneurysm of heart; I10 Essential (primary) hypertension | CPT/HCPCS: 93005; 99212 ==